=== PATIENT | female | born 1950 | race Caucasian/White ===

== ENCOUNTER → 2023-02-15 | Outpatient (CLI) | payer MEDICARE, SELFPAY ==
[2023-02-15 13:22] LABS: Thyroid Stim Hormone (TSH) 2.61 uIU/mL (0.358-3.74)
== END | disposition home or self-care (01) ==
LOC: LAB 12:03
PROVIDERS: PCP Nurse Practitioner Family; Referring Provider Internal Medicine Cardiovascular Disease; Visit Provider Internal Medicine Cardiovascular Disease
DX: E78.5 Hyperlipidemia, unspecified (principal)
CPT/HCPCS: 36415; 84443

== ENCOUNTER → 2023-03-17 | Outpatient (CLI) | payer MEDICARE, SELFPAY ==
--- NOTE | 2023-03-17 14:28 | ECHOD_ITS ---
Reason For Study: PALPITATIONS Procedure This was a 2D Doppler, Color Flow transthoracic echocardiogram. Exam performed in department. Left Ventricle Normal LV size. Mild concentric left ventricular hypertrophy. The left ventricular ejection fraction is 65 %. Normal diastology for age. Right Ventricle Normal right ventricle. Atria The left and right atria are normal. Mitral Valve Trivial mitral valve insufficiency. Tricuspid Valve Trivial tricuspid valve insufficiency. Normal pulmonary artery pressure. Aortic Valve Trisinus/trileaflet aortic valve. Mild (1+) aortic valve insufficiency. Pulmonic Valve The pulmonic valve is not well visualized. Trivial pulmonic valve insufficiency. Great Vessels Normal sized aortic root. Pericardium/Pleural Trace to small pericardial effusion. MMode/2D Measurements & Calculations LVIDd: 4.2 cm IVSd: 1.2 cm Ao root diam: 3.1 cm LVIDs: 2.8 cm LVPWd: 1.1 cm RVDd: 3.6 cm FS: 32.4 % LAV(MOD-bp): 33.6 ml LVAd ap4: 25.2 cm2 SV(MOD-sp4): 47.0 ml LAV(MOD-bp) Indexed: 18.1 ml/m2 LVLd ap4: 7.2 cm LAV(MOD-sp2): 31.1 ml EDV(MOD-sp4): 72.5 ml LAV(MOD-sp4): 36.7 ml EDV(sp4-el): 75.2 ml LVAs ap4: 13.8 cm2 LVLs ap4: 6.0 cm ESV(MOD-sp4): 25.6 ml ESV(sp4-el): 27.0 ml EF(MOD-sp4): 64.8 % EF(sp4-el): 64.1 % SV(sp4-el): 48.2 ml LA A4 area: 15.3 cm2 LA dimension(2D): 3.7 cm RA A4 area: 14.8 cm2 Time Measurements MV dec time: 0.23 sec Doppler Measurements & Calculations MV E max adal: 84.7 cm/sec Lat Peak E' Adal: 7.7 cm/sec Med Peak E' Adal: 6.3 cm/sec MV A max adal: 91.7 cm/sec E/E' lat: 11.0 E/E' med: 13.5 MV E/A: 0.92 Ao V2 max: 138.2 cm/sec AI max adal: 365.1 cm/sec LV V1 max: 141.3 cm/sec Ao max P.6 mmHg AI max P.3 mmHg LV V1 max P.0 mmHg AI dec slope: 209.1 cm/sec2 AI P1/2t: 511.4 msec PA V2 max: 97.6 cm/sec TR max adal: 208.9 cm/sec TR max P.5 mmHg ECHO/Echo Complete Interpretation Summary Mild concentric left ventricular hypertrophy. The left ventricular ejection fraction is 65 %. Mild (1+) aortic valve insufficiency. Trace to small pericardial effusion. Ordering Physician: Angie Egan Referring Physician: DEREK PHILLIPS Performed By: Peggy Zapien RDCS
== END | disposition home or self-care (01) ==
LOC: CVS 14:28
PROVIDERS: PCP Nurse Practitioner Family; Referring Provider Internal Medicine Cardiovascular Disease; Visit Provider Internal Medicine Cardiovascular Disease
DX: R00.2 Palpitations (principal); I25.10 Atherosclerotic heart disease of native coronary artery without angina pectoris; E78.5 Hyperlipidemia, unspecified; I10 Essential (primary) hypertension; Z95.5 Presence of coronary angioplasty implant and graft
CPT/HCPCS: 93306

== ENCOUNTER → 2025-01-20 | Outpatient (CLI) | payer MEDICARE, SELFPAY | END | disposition home or self-care (01) | LOC: LABSPEC 10:25 | PROVIDERS: PCP Nurse Practitioner Family; Visit Provider Surgery | DX: K43.9 Ventral hernia without obstruction or gangrene (principal) | CPT/HCPCS: 87081 ==

== ENCOUNTER 2025-02-03 06:09 | Day surgery (SDC) | payer MEDICARE, SELFPAY ==
--- NOTE | 2025-01-21 11:19 | PAT.ANESEVAL ---
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 When Was Last Pacemaker Check QUESTION #4 FULL TEXT: You/Your Family Experience fever (hyperthermia) with Anesthesia Last Oral Intake Last Oral intake: Last Oral Intake NPO since Meds taken in AM with sips of water? 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 Female Yes 01/20/25 13:28 HX of Motion Sickness No 01/20/25 13:28 HX of N/V After Surgery No 01/20/25 13:28 Non-Smoker Yes 01/20/25 13:28 Duration of Surgery greater Yes 01/20/25 13:28 than 60 minutes Number of Risk Factors 3 01/20/25 13:28 PONV Score Moderate Risk 01/20/25 13:28 Height & Weight Height & Weight: Anesthesia: Height & Weight Height 5 ft 5 in 09/06/24 09:56 Respiratory Assessment Respiratory Assessment - exhaust machine operator: Respiratory Tract Infection Hx - exhaust machine operator Hx Respiratory Tract Infection No 01/20/25 13:28 STOP Sleep Apnea STOP Sleep Apnea - exhaust machine operator: STOP Sleep Apnea - exhaust machine operator Hx Hypertension Yes: CONTROLLED ON MED 01/20/25 13:28 Hx Sleep Apnea No 01/20/25 13:28 CPAP BIPAP Do you snore loudly (louder No 01/20/25 13:28 than talking or can be heard Do you often feel tired/ No 01/20/25 13:28 fatigued/ sleepy during daytime? Has anyone observed you stop No 01/20/25 13:28 breathing during sleep? STOP Results Negative 01/20/25 13:28 QUESTION #5 FULL TEXT : Do you snore loudly (louder than talking or can be heard through closed doors)? 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 Specify any problems Hx of Preganancy in last 3 No 01/20/25 13:28 Months Nurse Filling Out Transfusion VCHRISTIN 01/20/25 13:28 & Questions: Date: 01/20/25 01/20/25 13:28 Time: 13:29 01/20/25 13:28 Patient unable to answer at this time (ie. 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 Adolfo Melo MD) Wears glasses Post-menopausal Cancer Arthritis High cholesterol Back pain History of IBS Gastric reflux Shortness of breath on exertion History of edema Normal Holter exam History of echocardiogram History of stress test Cardiology follow-up encounter Hx of squamous cell carcinoma History of basal cell cancer BMI 28.0-28.9,adult Elevated fasting glucose Chronic neck pain Glaucoma Former smoker GERD (gastroesophageal reflux disease) Vitamin D deficiency Pulmonary nodule CAD (coronary artery disease) Hyperlipidemia Cervical spondylosis Essential hypertension Depression Fallen bladder IBS (irritable bowel syndrome) Home Medications ?Medication ?Instructions ?Recorded ?Last Taken ?Type amoxicillin 500 mg capsule 2,000 mg PO ONCE PRN dental 02/13/23 Unknown History procedures ascorbic acid (vitamin C) 500 mg 500 mg PO DAILY 02/13/23 Unknown History capsule,extended release aspirin 81 mg tablet,delayed 81 mg PO DAILY 02/13/23 Unknown History release atorvastatin 40 mg tablet 40 mg PO QHS 02/13/23 Unknown History calcium carbonate (Calcium 600) 600 mg PO BID 02/13/23 Unknown History cholecalciferol (vitamin D3) 50 50 mcg PO DAILY 02/13/23 Unknown History mcg (2,000 unit) capsule citalopram 20 mg tablet 20 mg PO DAILY 02/13/23 Unknown History collagen,hydrolysate 500 mg-biotin 1 cap PO DAILY 02/13/23 Unknown History 800 mcg-ascorbic acid 50 mg capsule (Collagen 1500 Plus C) famotidine 20 mg tablet 20 mg PO BID 02/13/23 Unknown History gabapentin 100 mg capsule 200 mg PO BID 02/13/23 Unknown History inulin 2 gram chewable tablet 2 g PO DAILY 02/13/23 Unknown History (Prebiotic Fiber) lactobacillus combination no.4 3 3,000 mmu cells PO .3x/wk 02/13/23 Unknown History billion cell capsule (Probiotic) multivitamin 1 tab PO DAILY 02/13/23 Unknown History omega 1-hgd-avh-fish oil 300 1 cap PO DAILY 02/13/23 Unknown History mg-1,000 mg capsule,delayed release (Fish Oil) sour puentes extract 1,000 mg 3,000 mg PO DAILY 02/13/23 Unknown History capsule (Tart Puentes Extract) timolol maleate 0.5 % eye drops 1 drp ophthalmic (eye) BID 02/13/23 Unknown History zinc acetate 50 mg (zinc) capsule 50 mg PO DAILY 02/13/23 Unknown History losartan 50 mg tablet 25 mg PO DAILY 08/16/24 Unknown History cyanocobalamin (vitamin B-12) 1,000 mcg PO DAILY 01/20/25 Unknown History 1,000 mcg tablet (Vitamin B-12) Allergy/AdvReac Type Severity Reaction Status Date / Time adhesive tape (tape) Allergy Intermediate Rash Verified 01/20/25 13:05 latex Allergy Intermediate Rash Verified 01/20/25 13:05 Family History (Updated 09/06/24 @ 09:56 by Carissa Arango) Brother Cancer lung AAA (abdominal aortic aneurysm) Asthma Mother AAA (abdominal aortic aneurysm) CAD (coronary artery disease) Hypertension Aunt Breast cancer Father Heart disease Surgical History (Updated 01/20/25 @ 13:27 by Roshni Brown) History of cardiac catheterization Hx of breast biopsy Hx of bladder repair surgery Hx of colonoscopy History of lumpectomy of left breast History of coronary artery stent placement Hx of hammer toe correction (~2008) Hx of dilation and curettage (~1972) Hx of cholecystectomy (~2006) Hx of bilateral cataract extraction Hx of total knee replacement (~2007) Hx of total hysterectomy Hx of varicose vein stripping (~2019) History of right shoulder replacement Social History Smoking Status: Former smoker how long ago did patient quit smokin caffeine: Yes (3-4 cups 1/2 caf daily) Audit: Pertinent Findings Pertinent Findings EKG Perinent findings: 08/16/2024. Sinus bradycardia. Negative precordial T waves?probably normal?consider anterior septal ischemia. (See stress) Stress test pertinent findings: 09/23/2024. EF is 74%. SPECT perfusion study was normal. No evidence for inducible ischemia. No evidence of scarred myocardium. Left ventricle is normal in size and function. Echo (EF%) pertinent findings: March 17, 2023. EF of 65%. Normal PA pressures. No aortic stenosis noted. Consult pertinent findings: 08/16/2024. Diameter PAC. 1. Chest pain-single episode 2 months ago. Similar in quality to previous chest pain prior to stenting. Nuclear stress test will be ordered. No current active chest pain. EKG done today is similar to EKG from 2022. Sinus bradycardia with negative precordial T waves, 53 bpm. 2. Coronary artery disease-status post stenting to the LAD in 2019. Continue to use statin therapy. Continue losartan for blood pressure management. Reviewed stress test. 3. Status post coronary artery stent placement-EVAN to the proximal LAD. Continue aspirin daily. 4. Hypertension?controlled in office today. Additional pertinent findings: Holter monitor February 24, 2023. Baseline rhythm is sinus bradycardia with heart rate of 58 bpm. 0 critical, 0 serious, 2 stable events. Manually triggered events during sinus bradycardia x 2. Recommendation Anesthesia Recommendation Anesthesia recommendation: OPTIMIZED for anesthesia
[2025-01-21 15:14] LABS: Hematocrit 38.9 % (37-47); Hemoglobin 13.0 g/dL (12.0-15.0); Mean Corp Hgb Conc 33.4 g/dL (32-36); Mean Corpuscular Volume 96.5 fL (81-99); Mean Platelet Vol. 10.5 fl (6.2-12.0); Platelet Count 157 K/mm3 (150-450); RBC Distribution Width CV 12.7 % (11.6-14.6); RBC Distribution Width SD 45.3 fl (35.1-43.9); Red Blood Count 4.03 M/mm3 (4.2-5.4); White Blood Count 5.3 K/mm3 (4.4-11.0)
[2025-01-21 15:38] LABS: Anion Gap 9 (5-15); BUN 18 mg/dL (4-19); BUN/Creat Ratio 20.1 RATIO (10-20); Calcium,Total 9.2 mg/dL (7.6-11.0); Carbon Dioxide 26.4 mmol/L (21.0-32.0); Chloride 104 mmol/L (98-108); Glucose 97 mg/dL (70-99); Potassium 4.6 mmol/L (3.3-5.1)
[2025-02-03] VITALS (14 sets, daily range): BP systolic 102–152; BP diastolic 55–102; PULSE 56–81; RESP 14–18; TEMP 36.1–37.1; O2SAT 94–100; BMI 28.2
--- OUTSIDE RECORDS SUMMARY | 2025-02-03 06:24 | XMS RPT_ITS | CCD ---
Author Organization [facility] CliniSyne Care Team Providers Care Mason [facility] [employer] Name Role Phone Jatinder PRINTED CIRCUIT DESIGNERCyndiyn Unavailable Cyndi Phillips CNPyn Unavailable [phone] Tung Youssef MD Unavailable Meeta Lozada LPN Unavailable Unavailable Unavailable Unavailable Dr. Angie Egan Attending Provider AMRIUM Phillips-C Derek Primary Care Provider MARIUM Phillips-C Derek Referring Provider Dr. Angie Egan Referring Provider Roof COMMERCIAL FISHER, COMMERCIAL FISHER-C Joss De Leon Attending Provider Kayla LACE INSPECTOR, Verónica Unavailable Unavailable Unavailable Unavailable Unavailable Unavailable Primary Care Provider Unavailabl e Unavailable Primary Care Provider Unavailabl e GRETTA GREEN Referring Unavailable GRETTA GREEN Referring Unavailable GRETTA GREEN Referring Unavailable DEREK PHILLIPS Referring Unavailable CYNDI PHILLIPSYN Referring Unavailable DEREK PHILLIPS Referring Unavailable JATINDERCYNDIYN Referring Unavailable Jatinder COMMERCIAL FISHER-CDerek Primary Care Provider Jatinder COMMERCIAL FISHER-CDerek Referring Provider [phone] Adolfo Melo MD Attending Provider [phone] Derek Phillips Primary Care Unavailable Adolfo Melo Referring Unavailable Adolfo Melo Attending Unavailable Jose A [employer] Unavailable Derek Phillips Primary Care Unavailable [place] Referring Unavailable [place] Attending Unavailable Derek Phillips Referring Unavailable Jatinder Derek Primary Care Unavailable [place] Attending Unavailable JatinderCyndiyn Referring Unavailable Adolfo Melo Attending Unavailable Jatinder, Derek Primary Care Unavailable Derek Phillips Referring Unavailable Derek Phillips Primary Care Unavailable Adolfo Melo Attending Unavailable Derek Phillips Primary Care Unavailable Adolfo Melo Attending Unavailable Allergies Allergy Classification Reported Allergen(s) Allergy Type Date of Onset Reaction(s) Facility (3 sources) Adhesive Tape; Translations: [adhesive tape] Allergy to substance 01-20-2025 [facility] (2 sources) Latex Allergy to substance 01-20-2025 [facility] (1 source) Latex Drug allergy (disorder) 01-20-2025 [facility] Repository Medications Current Medications Medication Drug Class(es) Dates Sig (Normalized) Sig (Original) amoxicillin 500 mg oral capsule (14 sources) Penicillin-class Antibacterial Start: 02-13-2023 take 4 capsules by mouth once as needed Amoxicillin 500 mg capsule Active 2000 mg PO ONCE as needed for dental procedures February 13, 2023 12:00am Start: 02-13-2023 take 2000 mg by mouth once Yunior xicillin Active 2000 MG PO ONCE February 13, 2023 12:00am Start: 01-24-2023 amoxicillin 50 0 mg oral capsule 4 capsule prior to dental appointments and procedures for 0 days Quantity: 4 {Capsule} Refills: 0 Ordered: 24-Jan-2023 Derek Phillips CNP Start : 24-Jan-2023 Active Comments: Mail order. Comment on above: Mail order. ascorbic acid 500 mg extended release oral capsule (14 sources) Vitamin C Start: 023 take 1 capsule by mouth once daily Ascorbic Acid (Vitamin C) 500 mg capsule, extended release Active 500 mg PO DAILY February 13, 2023 12:00am aspirin 81 mg delayed release oral tablet (4 sources) Platelet Aggregation Inhibitor, Nonsteroidal Anti-inflammatory Drug Start: 023 take 1 tablet by mouth once daily Aspirin 81 mg tablet,delayed release (DR/EC) Active 81 mg PO DAILY February 13, 2023 12:00am atorvastatin 40 mg oral tablet (14 sources) HMG-CoA Reductase Inhibitor Start: 023 take 1 tablet by mouth at bedtime Atorvastatin 40 mg tablet Active 40 mg PO AT BEDTIME February 13, 2023 12:00am Comment on above: Mail order. calcium carbonate 1500 mg oral tablet (4 sources) Start: 023 take 1 tablet by mouth twice daily Calcium Carbonate (Calcium 600) 600 mg calcium (1,500 mg) tablet Active 600 mg PO TWICE A DAY February 13, 2023 12:00am cholecalciferol 0.05 mg oral capsule (14 sources) Vitamin D Start: 023 take 1 capsule by mouth once daily Cholecalciferol (Vitamin D3) 50 mcg (2,000 unit) capsule Active 50 ug PO DAILY February 13, 2023 12:00am Vitamin D3 50 mc g (2,000 unit) oral tablet (50 mcg (2,000 uni) Active citalopram 20 mg oral tablet (14 sources) Serotonin Reuptake Inhibitor Start: 01-24-2023 take 1 tablet by mouth once daily Citalopram 20 mg tablet Active 20 mg PO DAILY February 13, 2023 12:00am Comment on above: Mail order. Wfepemro-Scdqhv-Kv corbic Acid (Collagen 1500 Plus C) 500 mg-800 mcg- 50 mg capsule (4 sources) Start: 02-13-2023 take 1 capsule by mouth once daily Cflhoewu-Yobnbp-F scorbic Acid (Collagen 1500 Plus C) 500 mg-800 mcg- 50 mg capsule Active 1 NMA PO DAILY February 13, 2023 12:00am Start: 02-13-2023 take 1 capsule by mo uth once daily Vaejpalr-Pgrisu-Lgqhozcu Acid (Collagen 1500 Plus C) 500 mg-800 mcg- 50 mg capsule Active 1 CAP PO DAILY February 13, 2023 12:00am famotidine 20 mg oral tablet (14 sources) Histamine-2 Receptor Antagonist Start: 01-24-2023 take 1 tablet by mouth twice daily Famotidine 20 mg tablet Active 20 mg PO TWICE A DAY February 13, 2023 12:00am Comment on above: Mail order. Mail order. Medicati on taken as needed. gabapentin 100 mg oral capsule (14 sources) Anti-epileptic Agent Start: 02-13-2023 take 2 capsules by mouth twice daily Gabapentin 100 mg capsule Active 200 mg PO TWICE A DAY February 13, 2023 12:00am Start: 02-13-2023 take 200 mg by mouth twice meenu ly Gabapentin Active 200 MG PO TWICE A DAY February 13, 2023 12:00am Start: 01-24-2023 take 2 capsules by m outh once daily in the morning gabapentin 100 mg oral capsule 2 (two) capsule qam and qpm for 0 days Quantity: 120 {Capsule} Refills: 0 Ordered: 24-Jan-2023 Derek Phillips CNP Start : 24-Jan-2023 Active Comment on above: Mail order. MONICA ra n Inulin (4 sources) Start: 02-13-2023 take 1 tablet by mouth once daily Inulin (Prebiotic Fiber) 2 gram tablet,chewable Active 2 g PO DAILY February 13, 2023 12:00am Start: 02-13-2023 take 1 tablet by edna th once daily Inulin (Prebiotic Fiber) 2 gram tablet,chewable Active 2 GM PO DAILY February 13, 2023 12:00am Lactobacillus Combination No.4 (Probiotic) 3 billion cell capsule (4 sources) Start: 02-13-2023 take 3 capsules by mouth once Lactobacillus Combination No.4 (Probiotic) 3 billion cell capsule Active 3000 NMA PO .3x/wk February 13, 2023 12:00am administer with a meal Start: 02-13-2023 take 3 capsules by mouth once Lactobacillus Combination No.4 (Probiotic) 3 billion cell capsule Active 3000 MMU CELLS PO .3x/wk February 13, 2023 12:00am administer with a meal losartan potassium 50 mg oral tablet (4 sources) Angiotensin 2 Receptor Viral Start: 08-16-2024 Losartan 50 mg tablet Active 25 mg PO DAILY August 16, 2024 9:35am Start: 08-18-2023 End: 08-16-2024 take 1 tablet by mouth once daily Losartan 50 mg tablet Discontinued 50 mg PO DAILY August 18, 2023 12:00am August 16, 2024 9:36am Multivitamin preparation (2 sources) Start: 02-13-2023 take 1 tablet by mouth once daily Multivitamin Active 1 TABLET PO DAILY February 13, 2023 12:00am Multivitamin tablet (2 sources) Start: 02-13-2023 Multivitamin t ablet Active 1 {tbl} PO DAILY February 13, 2023 12:00am [place] 9-Nok-Qqx-Fish Oil (Fish Oil) 300-1,000 mg capsule,delayed release(DR/EC) (4 sources) Start: 02-13-2023 [place] 3-Dha-Ep a-Fish Oil (Fish Oil) 300-1,000 mg capsule,delayed release(DR/EC) Active 1 NMA PO DAILY February 13, 2023 12:00am Start: 02-13-2023 take 300-1000 mg by mouth once daily [place] 3-Sku-Ozs-Fish Oil (Fish Oil) 300-1,000 mg capsule,delayed release(DR/EC) Active 1 CAP PO DAILY February 13, 2023 12:00am sour ty allergenic extract (4 sources) Non-Standardized Food Allergenic Extract, Non-Standardized Plant Allergenic Extract Start: 02-13-2023 take 1 capsule by mouth once daily Sour Ty Extract (Tart Ty Extract) 1,000 mg capsule Active 3000 mg PO DAILY February 13, 2023 12:00am Start: 02-13-2023 take 1 capsule by mo uth once daily Sour Ty Extract (Tart Ty Extract) 1,000 mg capsule Active 3000 MG PO DAILY February 13, 2023 12:00am Timolol Maleate (14 sources) beta-Adrenergic Viral Start: 02-13-2023 Timolo l Maleate 0.5 % drops Active 1 NMA OPHTHALMIC TWICE A DAY February 13, 2023 12:00am Start: 02-13-2023 Timolol Maleat e Active 1 DRP OPHTHALMIC TWICE A DAY February 13, 2023 12:00am Start: 01-24-2023 timoloL 0.5 % ophthalmic (eye) drops 1 (one) Dropperful each eye morning and night for 0 days Quantity: 3 {Each} Refills: 0 Ordered: 24-Jan-2023 Derek Phillips CNP Start : 24-Jan-2023 Active Comments: Mail order. Comment on above: Mail order. vitamin b12 1 mg oral tablet (1 source) Vitamin B12 Start: 01-20-2025 take 1 tablet by mouth once daily Cyanocobalamin (Vitamin B-12) (Vitamin B-12) 1,000 mcg tablet Active 1000 ug PO DAILY January 20, 2025 12:00am zinc acetate 50 mg oral capsule (14 sources) Start: 02-13-2023 take 1 capsule by mouth once daily Zinc Acetate 50 mg (zinc) capsule Active 50 mg PO DAILY February 13, 2023 12:00am Completed/Discontinued Medications Medication Drug Class(es) Dates Sig (Normalized) Sig (Original) Fish OiL 300-1,000 mg oral capsule,delayed release (enteric coated) (10 sources) take 1 capsule by mouth once daily Fish OiL 300-1,000 mg oral capsule,delayed release (enteric coated) daily (300-1,000 mg) Active terbinafine 250 mg oral tablet (2 sources) Allylamine Antifungal Start: 09-06-2024 End: 01-20-2025 take 1 tablet by mouth once daily Terbinafine Hcl 250 mg tablet Discontinued 250 mg PO daily September 06, 2024 12:00am January 20, 2025 10:03am 1x/d, first week month x 3 months Problems Active Problems Problem Classification Problem Date Documented Da te Episodic/Chronic Abdominal hernia (6 sources) Disorder of abdominal wall; Translations: [Ventral hernia without obstruction or gangrene] Onset: 01-24-2025 09-06-2024 Episodic Comment on above: Patient 74-year-old female who makes for surgical consultation related 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 Patient does describe progressive pain complaints with this hernia and recent CT imaging demonstrates the hernia to periodically contain bowel. Furthermore, patient does appear to have some negative effect to her bowel with increased pain around times of constipation. Given the size of the hernia and patient's symptoms as well as her otherwise appearance of appropriate candidacy for surgery, I do recommend proceeding for hernia repair. I described a robot-assisted transabdominal preperitoneal spigelian hernia closure with mesh placement. Patient had a number of questions related to development of scar tissue postoperatively. I then went on to describe expected postoperative recovery. I suggested that patient would need to refrain from any exertional activity for a period of 4 to 5 weeks postoperatively. To this patient states that she has travel plans beginning September through December but wishes to undergo operative repair when she arrives home. Since patient has gone at least 7 years with this hernia and no complications to date I believe this is reasonable. 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 Patient does describe progressive pain complaints with this hernia and recent CT imaging demonstrates the hernia to periodically contain bowel. Furthermore, patient does appear to have some negative effect to her bowel with increased pain around times of constipation. Given the size of the hernia and patient's symptoms as well as her otherwise appearance of appropriate candidacy for surgery, I do recommend proceeding for hernia repair. I described a robot-assisted transabdominal preperitoneal spigelian hernia closure with mesh placement. Patient had a number of questions related to development of scar tissue postoperatively. I then went on to describe expected postoperative recovery. I suggested that patient would need to refrain from any exertional activity for a period of 4 to 5 weeks postoperatively. To this patient states that she has travel plans beginning September through December but wishes to undergo operative repair when she arrives home. Since patient has gone at least 7 years with this hernia and no complications to date I believe this is reasonable.Update 01/20/2025: Patient arrives for updated H&P. She denies any interval health changes. She does continue to have symptoms from her right spigelian hernia. This is stable in size and otherwise on exam. She has a number of questions today related to her procedure which were answered individually. She confirms satisfaction with these answers. I have provided an overview of our intended procedure-transabdominal preperitoneal repair of her right spigelian hernia. She confirms familiarity with robotics procedures as she has previously undergone robotic assisted cholecystectomy and hysterectomy. Lastly a MRSA swab was obtained of her nares to evaluate for any need for preoperative eradication. Abdominal pain (4 sources) Right lower quadrant pain; Translations: [Right lower quadrant pain] 03-29-2023 Episodic Comment on above: s/p cholecystectomy Coronary atherosclerosis and other heart disease (20 sources) Coronary arteriosclerosis; Translations: [Coronary artery disease] Onset: 08-16-2024 01-24-2023 Chronic Comment on above: not established with cardio yet since just moved here not established with cardio yet since just moved here September 2022 Diabetes mellitus without complication (20 sources) Hyperglycemia; Translations: [Elevated fasting glucose] 01-24-2023 Episodic Disorders of lipid metabolism (20 sources) Hyperlipidemia; Translations: [Hyperlipidemia] 01-24-2023 Chronic Esophageal disorders (20 sources) Gastric reflux; Translations: [Gastric reflux] 01-24-2023 Chronic Essential hypertension (20 sources) Benign essential hypertension; Translations: [Benign essential hypertension] 01-24-2023 Chronic Comment on above: CONTROLLED ON MED Glaucoma (20 sources) Glaucoma; Translations: [Glaucoma] 01-24-2023 Chronic Immunizations and screening for infectious disease (8 sources) Viral screening status; Translations: [Need for hepatitis C screening test] 03-29-2023 Episodic Mood disorders (20 sources) Depressive disorder; Translations: [Depression] 01-24-2023 Chronic Nutritional deficiencies (20 sources) Vitamin D deficiency; Translations: [Vitamin D deficiency] 01-24-2023 Chronic Other gastrointestinal disorders (20 sources) Irritable bowel syndrome with diarrhea; Translations: [Irritable bowel syndrome with diarrhea] 01-24-2023 Chronic Comment on above: controlled with diet no medications. took fiber in past. ice cream makes worse. Other lower respiratory disease (20 sources) Multiple nodules of lung; Translations: [Multiple pulmonary nodules] 01-24-2023 Episodic Comment on above: no breathing issues. No inhaler use. had repeat CT 02/03/23 : multiple lung nodules 6-8mm (last was up to 6mm in [place]). recommendations include f/u CT chest WO IVCON in 3-6 months, then if stable repeat in another 12 months.no breathing issues. No inhaler use. Other lower respiratory disease (16 sources) Nodule of lung; Translations: [Pulmonary nodule] Resolved: 02-13-2023 01-24-2023 Episodic Other nutritional; endocrine; and metabolic disorders (20 sources) Overweight in adulthood with body mass index of 25 or more but less than 30; Translations: [BMI 28.0-28.9,adult (Renamed from Body mass index (BMI) of 28.0 to 28.9 in adult)] 01-24-2023 Episodic Screening and history of mental health and substance abuse codes (20 sources) Ex-smoker; Translations: [Former smoker] 01-24-2023 Episodic Comment on above: 10 yrs, quit when 23 yrs old, 37-fz-wj-history Spondylosis; intervertebral disc disorders; other back problems (20 sources) Cervical spondylosis; Translations: [Cervical spondylosis] 01-24-2023 Chronic Spondylosis; intervertebral disc disorders; other back problems (20 sources) Chronic neck pain; Translations: [Chronic neck pain] 01-24-2023 Episodic Comment on above: on gabapentin. tried to recently wean and her nerve pain spiked so back on it. Unclassified (12 sources) Unclassified (1 source) Radiology NM Onset: 09-23-2024 Past or Other Problems Problem Classification Problem Date Documented Da te Episodic/Chronic Cardiac dysrhythmias (7 sources) Palpitations; Translations: [Palpitations] Onset: 08-16-2024 02-15-2023 Episodic Coronary atherosclerosis and other heart disease (5 sources) Presence of coronary angioplasty implant and graft; Translations: [Percutaneous transluminal coronary angioplasty status] Onset: 08-16-2024 02-15-2023 Episodic Nonspecific chest pain (6 sources) Chest pain; Translations: [Chest pain, unspecified] Onset: 08-16-2024 09-23-2024 Episodic Unclassified (10 sources) 1 live 01-25-2023 NEGATED: Highlighted row has been ruled out!Residual codes; unclassified (1 source) Disease Episodic Results Test Name Value Interpretation Reference Range Facility Basic Metabolic Profile (BMP )on 01-21-2025 BUN/CRE 20.1 RATIO High 03-17 [facility] Comment on above: Performed By: #### L 500.2500, L100.0500 #### [facility] [address] [place], [address] Calcium [Mass/Vol] 9.2 mg/dL Normal 7.6-11.0 [facility] Comment on above: Performed By: #### L 500.2500, L100.0500 #### [facility] [address] [place], [address] Chloride [Moles/Vol] 104 mmol/L Normal 98-108 [facility] Comment on above: Performed By: #### L 500.2500, L100.0500 #### [facility] [address] [place], [address] CO2 [Moles/Vol] 26.4 mmol/L Normal 21.0-32.0 [facility] Comment on above: Performed By: #### L 500.2500, L100.0500 #### [facility] [address] [place], [address] Creatinine [Mass/Vol] 0.90 mg/dL Normal 0.70-1.20 [facility] Comment on above: Performed By: #### L 500.2500, L100.0500 #### [facility] [address] [place], [address] GAP 9 Normal 5-15 [facility] Comment on above: Performed By: #### L 500.2500, L100.0500 #### [facility] [address] [place], [address] GFR/1.73 sq M.predicted among non-blacks MDRD (S/P/Bld) [Vol rate/Area] 67 mL/min/{1.73_m2} Normal >60 [facility] Comment on above: Result Comment: mL/m in/1.73m2 CKD-EPI Creatinine Equation (2020) Performed By: #### L 500.2500, L100.0500 #### [facility] [address] [place], [address] Glucose [Mass/Vol] 97 mg/dL Normal 70-99 [facility] Comment on above: Performed By: #### L 500.2500, L100.0500 #### [facility] [address] [place], [address] Potassium [Moles/Vol] 4.6 mmol/L Normal 3.3-5.1 [facility] Comment on above: Performed By: #### L 500.2500, L100.0500 #### [facility] [address] [place], [address] Sodium [Moles/Vol] 140 mmol/L Normal 133-145 [facility] Comment on above: Performed By: #### L 500.2500, L100.0500 #### [facility] [address] [place], [address] Urea nitrogen [Mass/Vol] 18 mg/dL Normal 4-19 [facility] Comment on above: Performed By: #### L 500.2500, L100.0500 #### [facility] [address] [place], [address] CBC-Complete Blood Cnt No Di ffon 08-26-2025 Erythrocyte distribution width (RBC) [Ratio] 12.7 % Normal 11.6-14.6 [facility] Comment on above: Performed By: #### L 500.2500, L100.0500 #### [facility] [address] [place], [address] Hematocrit (Bld) [Volume fraction] 38.9 % Normal 37-47 [facility] Comment on above: Performed By: #### L 500.2500, L100.0500 #### [facility] [address] [place], [address] Hemoglobin (Bld) [Mass/Vol] 13.0 g/dL Normal 12.0-15.0 [facility] Comment on above: Performed By: #### L 500.2500, L100.0500 #### [facility] [address] [place], [address] MCH (RBC) [Entitic mass] 32.3 pg High 27.0-32.0 [facility] Comment on above: Performed By: #### L 500.2500, L100.0500 #### [facility] [address] [place], [address] MCHC (RBC) [Mass/Vol] 33.4 g/dL Normal 32-36 [facility] Comment on above: Performed By: #### L 500.2500, L100.0500 #### [facility] [address] [place], [address] MCV (RBC) [Entitic vol] 96.5 fL Normal 81-99 [facility] Comment on above: Performed By: #### L 500.2500, L100.0500 #### [facility] [address] [place], [address] Platelet mean volume (Bld) [Entitic vol] 10.5 fL Normal 6.2-12.0 [facility] Comment on above: Performed By: #### L 500.2500, L100.0500 #### [facility] [address] [place], [address] Platelets (Bld) [#/Vol] 157 10*3/uL Normal 150-450 [facility] Comment on above: Performed By: #### L 500.2500, L100.0500 #### [facility] [address] [place], [address] RBC (Bld) [#/Vol] 4.03 10*6/uL Low 4.2-5.4 [facility] Comment on above: Performed By: #### L 500.2500, L100.0500 #### [facility] [address] [place], [address] RDW SD 45.3 fl High 35.1-43.9 [facility] Comment on above: Performed By: #### L 500.2500, L100.0500 #### [facility] [address] [place], [address] WBC (Bld) [#/Vol] 5.3 10*3/uL Normal 4.4-11.0 [facility] Comment on above: Performed By: #### L 500.2500, L100.0500 #### [facility] [address] [place], [address] MR/PAT.MARGYon 01-21-2025 MR/PAT[facility] Medical Records Department [address] [place] [address] PAT - Anesthesia 01/21/25 1119 MR#: [id number] Acct: [id number] Name: PAOLA ANDERSON MARTÍN Rep #: [id number] : 1950 74 From: Roberto Carlos Spence MD PCP: Derek Phillips COMMERCIAL FISHERWilmaC Status:PRE [facility] Y Race: C [place] [facility] Pre-Assessment Diagnosis/Proposed Procedure Planned Operative Procedure(s): (R) Lap Robotic Spigelian Hernia w/mesh Anesthesia History Anesthesia History - 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 When Was Last Pacemaker Check QUESTION #4 FULL TEXT: You/Your Family Experience fever (hyperthermia) with Anesthesia Last Oral Intake Last Oral intake: Last Oral Intake NPO since Meds taken in AM with sips of water? 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 - campus recruiter: PONV - campus recruiter Female Yes 01/20/25 13:28 HX of Motion Sickness No 01/20/25 13:28 HX of N/V After Surgery No 01/20/25 13:28 Non-Smoker Yes 01/20/25 13:28 Duration of Surgery greater Yes 01/20/25 13:28 than 60 minutes Number of Risk Factors 3 01/20/25 13:28 PONV Score Moderate Risk 01/20/25 13:28 Height Weight Height Weight: Anesthesia: Height Weight Height 5 ft 5 in 09/06/24 09:56 Respiratory Assessment Respiratory Assessment - campus recruiter: Respiratory Tract Infection Hx - campus recruiter Hx Respiratory Tract Infection No 01/20/25 13:28 STOP Sleep Apnea STOP Sleep Apnea - campus recruiter: STOP Sleep Apnea - campus recruiter Hx Hypertension Yes: CONTROLLED ON MED 01/20/25 13:28 Hx Sleep Apnea No 01/20/25 13:28 CPAP BIPAP Do you snore loudly (louder No 01/20/25 13:28 than talking or can be heard Do you often feel tired/ No 01/20/25 13:28 fatigued/ sleepy during daytime? Has anyone observed you stop No 01/20/25 13:28 breathing during sleep? STOP Results Negative 01/20/25 13:28 QUESTION #5 FULL TEXT : Do you snore loudly (louder than talking or can be heard through closed doors)? 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 Specify any problems Hx of Preganancy in last 3 No 01/20/25 13:28 Months Nurse Filling Out Transfusion VCHRISTIN 01/20/25 13:28 Questions: Date: 01/20/25 01/20/25 13:28 Time: 13:29 01/20/25 13:28 Patient unable to answer at this time (ie. confused, unrespo /Reproduction History /Reproductive History - campus recruiter: /Reproductive Hx- campus recruiter Hx Now No 01/20/25 13:28 Gestational Age (in weeks): EDC: Hx Hx Para Hx Section SAB No 01/20/25 13:28 [facility] Medical History (Updated 01/20/25 @ 13:[address] Adolfo Melo MD) Wears glasses Post-menopausal Cancer Arthritis High cholesterol Back pain History of IBS Gastric reflux Shortness of breath on exertion History of edema Normal Holter exam History of echocardiogram History of stress test Cardiology follow-up encounter Hx of squamous cell carcinoma History of basal cell cancer BMI 28.0-28.9,adult Elevated fasting glucose Chronic neck pain Glaucoma Former smoker GERD (gastroesophageal reflux disease) Vitamin D deficiency Pulmonary nodule CAD (coronary artery disease) Hyperlipidemia Cervical spondylosis Essential hypertension Depression Fallen bladder IBS (irritable bowel syndrome) Home Medications ???Medication ???Instructions ???Recorded ???Last Taken ???Type amoxicillin 500 mg capsule 2,000 mg PO ONCE PRN dental (more content not included)... Normal [facility] MRSA/SAID NASAL SCREENon MRSA+SAID SCRN Negative Normal [facility] Comment on above: Performed By: #### M 100.651 #### [facility] [address] [place], [address] MRSA screenOrdered By: Benson Melo on 01-20-2025 MRSA DNA ALLYSSA+probe Ql (Unsp spec) [facility] Surgery Visit Reporton 01-20 Surgery Visit Report [facility] [address] [place] [address] OFFICE VISIT Date of Service: 01/20/25 MR#: [id number] Acct: [id number] Name: PAOLA ANDERSON MARTÍN Rep #: [id number] : 1950 Provider: Dr. Adolfo flaherty MD Age/Sex: 74/F Location: [facility] Status: Signed Intake Vital Signs 09/06/24 09:56 01/20/25 10:01 Height 5 ft 5 in 5 ft 5 in Weight: 170 lb 172 lb BMI 28.3 28.6 BP 129/74 H 124/67 H Blood Pressure Location Lt brachial Rt brachial Position Sitting Sitting Respiration 17 17 Pulse 55 L 53 L Pulse Source Monitor Monitor Pulse Oximetry (%) 100 99 Oxygen Delivery Method room air room air Intake Visit Reasons: UPDATE H P AND MRSA SWAB Chief Complaint: update H P and MRSA Swab Is patient in pain?: No Allergies adhesive tape (tape) Allergy (Intermediate, Verified 01/20/25 13:05) Rash latex Allergy (Intermediate, Verified 01/20/25 13:05) Rash Medications ???Medication ???Instructions ???Recorded ???Confirmed ???Type amoxicillin 500 mg capsule 2,000 mg PO ONCE PRN dental 01/20/25 History procedures ascorbic acid (vitamin C) 500 mg 500 mg PO DAILY 02/13/23 01/20/25 History capsule,extended release aspirin 81 mg tablet,delayed 81 mg PO DAILY 02/13/23 01/20/25 H istory release atorvastatin 40 mg tablet 40 mg PO QHS 02/13/23 01/20/25 His tory calcium carbonate (Calcium 600) 600 mg PO BID 02/13/23 01/20/25 Hi story cholecalciferol (vitamin D3) 50 50 mcg PO DAILY 02/13/23 01/20/25 History mcg (2,000 unit) capsule citalopram 20 mg tablet 20 mg PO DAILY 02/13/23 01/20/25 H istory collagen,hydrolysate 500 mg-biotin 1 cap PO DAILY 02/13/23 01/20/25 History 800 mcg-ascorbic acid 50 mg capsule (Collagen 1500 Plus C) famotidine 20 mg tablet 20 mg PO BID 02/13/23 01/20/25 His tory gabapentin 100 mg capsule 200 mg PO BID 02/13/23 01/20/25 Hi story inulin 2 gram chewable tablet 2 g PO DAILY 02/13/23 01/20/25 His tory (Prebiotic Fiber) lactobacillus combination no.4 3 3,000 mmu cells PO .3x/wk 02/13/23 01/20/25 History billion cell capsule (Probiotic) multivitamin 1 tab PO DAILY 02/13/23 01/20/25 H istory omega 2-pon-adk-fish oil 300 1 cap PO DAILY 02/13/23 01/20/25 H istory mg-1,000 mg capsule,delayed release (Fish Oil) sour ty extract 1,000 mg 3,000 mg PO DAILY 02/13/23 5 History capsule (Tart Ty Extract) timolol maleate 0.5 % eye drops 1 drp ophthalmic (eye) BID 3 01/20/25 History zinc acetate 50 mg (zinc) capsule 50 mg PO DAILY 02/13/23 01/20/25 History losartan 50 mg tablet 25 mg PO DAILY 08/16/24 01/20/25 H istory cyanocobalamin (vitamin B-12) 1,000 mcg PO DAILY 01/20/25 History 1,000 mcg tablet (Vitamin B-12) Have you fallen in the past year?: No PFSH Medical History BMI 28.0-28.9,adult Elevated fasting glucose Chronic neck pain Glaucoma Former smoker GERD (gastroesophageal reflux disease) Vitamin D deficiency Pulmonary nodule CAD (coronary artery disease) Hyperlipidemia Cervical spondylosis Essential hypertension Depression Fallen bladder IBS (irritable bowel syndrome) Surgical History History of coronary artery stent placement Hx of hammer toe correction ( 2008) Hx of dilation and curettage ( 1972) Hx of cholecystectomy ( 2007) Hx of bilateral cataract extraction Hx of total knee replacement ( 2007) Hx of total hysterectomy Hx of varicose vein stripping ( 2018) History of right shoulder replacement Family History (Updated 09/06/24 @ 09:56 by Carissa Arango) Brother Cancer lung AAA (abdominal aortic aneurysm) Asthma Mother AAA (abdominal aortic aneurysm) CAD (coronary artery disease) Hypertension Aunt Breast cancer Father Heart disease Social History Smoking Status: Former smoker how long ago did patient quit smokin caffeine: Yes (3-4 cups 1/2 caf daily) HPI HPI HPI: Patient last seen 09/06/2024. She presents today for updated H P as may prepare for operative repair of a right spigelian hernia. She shares that she has done reasonably well since her consultation visit, however she admits that she has had a couple of spells. By this she states that she has experienced her right lower quadrant hurting pretty good. She shares that simply by laying down and massaging the area both the noted pain and associated bulge remit. She generally notes that her bowel activity has been status quo (she notes a history of IBS) but yesterday she did have a particularly loose stool. She previously was taking fiber but ran out of this medication. (more content not included)... [facility] ([facility] PAOLA CASTELLANOS ([id number]) 1950 F Date Time Provider Department 09/23/24 1:50 PM NURSE CARD [facility] CARDWS During your visit today, we recorded the following information about you: Jaqui Turner RN 09/23/2024 2:37 PM Signed RADIOLOGY SERVICE PROGRESS NOTE SERVICE DATE: 09/23/2024 SERVICE TIME: 1350 PATIENT IDENTITY VERIFICATION COMPLETED USING TWO (2) METHODS: Patient confirmed name and Date of verbally. ALLERGIES AND MEDICATIONS REVIEWED BY: Jaqui Turner RN PROCEDURE TYPE: NM STRESS: 0.4 mg of Lexiscan was administered IV at 1357 over 10 Seconds by Jaqui Turner RN Reversal agent used:None LOT [id number] EXP 02/21 IV SITE: IV palced by nuclear tecnologist POST EXAM PIV STATUS: Discontinued by Nurse Companion PATIENT DISCHARGED TO: Nuclear Medicine Department for post stress imaging A Diagnostic radioactive procedure has taken place, with no further precautions necessary other than routine body substance precautions. More information regarding radiation safety can be found using this link: [email or web address] [email or web address]/files/Rad%20P rotection%20-- %20Diagnostic%20Nuclea r%20Medicine%20Procedu res.pdf SIGNATURE: Jaqui Turner RN PATIENT NAME:Paola Castellanos DATE: 09/23/24 TIME: 2:34 PM Referring Provider: GRETTA GREEN [[id number]] Allergies As of Date: 09/23/2024 (Not on File) Date Reviewed: 09/23/2024 Reviewed by: Kareem Sepulveda, RT(R) - Partially Assessed Primary Visit Diagnosis:Atherosclero sis of [place] coronary artery of [place] heart without angina pectoris [I25.10] Other Visit Diagnoses:Status post coronary artery stent placement [Z95.5] Chest pain, unspecified type [R07.9] Problem List As Of Date: 09/23/2024 (None) Encounter Status:Closed by JAQUI TURNER on 09/23/24 Normal [facility] NM CARDIAC PERF STRESS/PHARM on 09-23-2024 NM CARDIAC PERF STRESS/PHARM * * *Final Report* * * DATE OF EXAM: Sep 23 2024 3:02PM WON 0006 - NM CARDIAC PERF STRESS/PHARM / PROCEDURE REASON: chest pain; atherosclerotic heart disease; presence of coonary angioplasty * * * * Physician Interpretation * * * * Stress Airplane Pilot Photogrammetry Report: [facility] Date of service: 09/23/2024 6:45:30 AM Supervising physician: Di Valera MD PATIENT: Name: PAOLA CASTELLANOS Age: 74 years Gender: F The supervising physician was in the department and immediately available. * * * Final * * * ------ PATIENT: Name: PAOLA CASTELLANOS Age: 74 years Gender: F CONCLUSIONS: 1. SPECT Perfusion Study: Normal. 2. There is no scintigraphic evidence for inducible ischemia. 3. No evidence of scarred myocardium. 4. Left ventricle is normal in size. The left ventricle systolic function is normal. 5. Right ventricle is normal in size. The right ventricle systolic function is normal. 6. This is a low risk scan. Gated Stress FBP Gated Rest FBP LVEF % 74 71 Prior Study Comparison No prior nuclear cardiology exam available for comparison. Nuclear Med Report:1-Day Gated SPECT Myocardial Perfusion with Regadenoson Stress: Myocardial perfusion imaging was performed at rest 30 minutes following the IV injection of the radiotracer. The patient received 0.4 mg of regadenoson, via rapid IV push, immediately followed by radiotracer IV. Gated post stress tomographic imaging was performed 30 to 60 minutes later. See administered radiotracer and doses below. [facility] Date of service: 09/23/2024 6:45:30 AM Ordering Physician: WEST ANDRADE. Requesting Physician: WEST ANDRADE Indication: CP - ECG uniterpretable OR unable to exercise Interpreting physician: Salvador Sullivan MD Height: 165.10 cm BSA: 1.89 m? Weight: 78.02 kg BMI: 28.6 kg/m? Imaging Protocol Limitation Reason G.I. uptake. Exam Type: Rest Stress Radiopharm: Tc-99m Tetrofosmin Tc-99m Tetrofosmin Dosage(mCi): 13.6 33.6 Stress Agent: Regadenoson 0.4mg Supply provided from [facility] Resting Blood Press: 150/78 mmHg Image Quality The overall study imaging quality was deemed to be good. The following technical issues were noted: G.I. uptake. FINDINGS: Left Ventricle Wall Motion: Stress IR:3D - All segments are normal. Rest IR:3D - Gated Stress FBP - Gated Rest FBP - Reversibility - Stress IR:3D Stress IR:3D Gated Stress FBP Gated Rest FBP LVEF: 74 % 71 % ED Volume: 80 ml 82 ml ES Volume: 21 ml 24 ml TID: 1.02 Perfusion Findings Stress IR:3D - Summed Score=0 All segments demonstrate normal perfusion. Rest IR:3D - Summed Score=0 All segments demonstrate normal perfusion. Stress IR:3D Rest IR:3D Summed Score=0 Summed Score=0 LEFT VENTRICLE The left ventricle is normal in size. Left ventricular systolic function is normal. Right Ventricle The right ventricle is normal in size. Right ventricle systolic function is normal. Stress Test Findings: There is no scintigraphic evidence for inducible ischemia. There is no evidence of scarring. The left ventricular cavity size is unchanged with stress. * * * Final * * * ------ Stress ECG Report: [facility] Date of service: 09/23/2024 6:45:30 AM Ordering physician: WEST ANDRADE testing specialist: Jauqi Turner RN Interpreting physician: Di Valera MD Patient name: PAOLA CASTELLANOS Age: 74 years Gender: F Height: 165.10 cm BSA: 1.89 m? Weight: 78.02 kg BMI: 28.6 kg/m? Indication: Chest pressure / Chest tightness, Atherosclerotic heart disease NOS, History of percutaneous coronary angioplasty and Palpitations Stress ECG Conclusion: Conclusion: Normal Prior exam comparison: No prior CC exam Stress ECG Summary: The patient's resting heart rate was 55 bpm and blood pressure was 150/78 mmHg. The test was terminated due to end of protocol. No symptoms provoked during stress. The maximum heart rate was 67 bpm, which is 47% of the predicted heart rate for age. Peak blood pressure was 116/68 mmHg. The double product achieved was 7772. Resting ECG: Sinus Bradycardia Symptoms at rest: No symptoms Pharamcologic Protocol: Regadenoson Stress Exercise Table: +-----+--+---+---+ Stage HR SYS COLBY +-----+--+---+---+ 1 59 +-----+--+---+---+ 2 74 112 62 +-----+--+---+---+ 3 69 +-----+--+---+---+ 4 67 116 68 +-----+--+---+---+ +-----+--+---+---+ HR SYS COLBY +-----+--+---+---+ Final 67 116 68 +-----+--+---+---+ Recovery Table: +------+- (more content not included)... Normal [facility] Surgery Visit Reporton 09-06 Surgery Visit Report [facility] [address] [place] [address] [address] [place] [id number] OFFICE VISIT Date of Service: 09/06/24 MR#: [id number] Acct: [id number] Name: PAOLA ANDERSON MARTÍN Rep #: [id number] : 1950 Provider: Dr. Adolfo flaherty MD Age/Sex: 74/F Location: [facility] Status: Signed Intake Vital Signs 08/18/23 10:01 08/16/24 07:42 09/06/24 09:56 Height 5 ft 5 in 5 ft 5 in 5 ft 5 in Weight: 172 lb 170 lb BMI 28.6 28.3 BP 116/75 129/74 H Blood Pressure Location Lt brachial Lt brachial Position Sitting Sitting Respiration 18 17 Pulse 53 L 55 L Pulse Source Monitor Monitor Pulse Oximetry (%) 100 100 Oxygen Delivery Method room air Intake Visit Reasons: Hernia Chief Complaint: hernia Is patient in pain?: No Allergies adhesive tape (tape) Allergy (Intermediate, Verified 09/06/24 10:00) Rash latex Allergy (Intermediate, Verified 09/06/24 10:00) Rash Medications ???Medication ???Instructions ???Recorded ???Confirmed ???Type amoxicillin 500 mg capsule 2,000 mg PO ONCE PRN dental 09/06/24 History procedures ascorbic acid (vitamin C) 500 mg 500 mg PO DAILY 02/13/23 09/06/24 History capsule,extended release aspirin 81 mg tablet,delayed 81 mg PO DAILY 02/13/23 09/06/24 H istory release atorvastatin 40 mg tablet 40 mg PO QHS 02/13/23 09/06/24 His tory calcium carbonate (Calcium 600) 600 mg PO BID 02/13/23 09/06/24 Hi story cholecalciferol (vitamin D3) 50 50 mcg PO DAILY 02/13/23 09/06/24 History mcg (2,000 unit) capsule citalopram 20 mg tablet 20 mg PO DAILY 02/13/23 09/06/24 H istory collagen,hydrolysate 500 mg-biotin 1 cap PO DAILY 02/13/23 09/06/24 History 800 mcg-ascorbic acid 50 mg capsule (Collagen 1500 Plus C) famotidine 20 mg tablet 20 mg PO BID 02/13/23 09/06/24 His tory gabapentin 100 mg capsule 200 mg PO BID 02/13/23 09/06/24 Hi story inulin 2 gram chewable tablet 2 g PO DAILY 02/13/23 09/06/24 His tory (Prebiotic Fiber) lactobacillus combination no.4 3 3,000 mmu cells PO .3x/wk 02/13/23 09/06/24 History billion cell capsule (Probiotic) multivitamin 1 tab PO DAILY 02/13/23 09/06/24 H istory omega 6-hxu-rmc-fish oil 300 1 cap PO DAILY 02/13/23 09/06/24 H istory mg-1,000 mg capsule,delayed release (Fish Oil) sour ty extract 1,000 mg 3,000 mg PO DAILY 02/13/23 5 History capsule (Tart Ty Extract) timolol maleate 0.5 % eye drops 1 drp ophthalmic (eye) BID 3 09/06/24 History zinc acetate 50 mg (zinc) capsule 50 mg PO DAILY 02/13/23 09/06/24 History losartan 50 mg tablet 25 mg PO DAILY 08/16/24 09/06/24 H istory terbinafine HCl 250 mg tablet 250 mg PO QDAY 09/06/24 09/06/24 H istory Have you fallen in the past year?: No PFSH Medical History BMI 28.0-28.9,adult Elevated fasting glucose Chronic neck pain Glaucoma Former smoker GERD (gastroesophageal reflux disease) Vitamin D deficiency Pulmonary nodule CAD (coronary artery disease) Hyperlipidemia Cervical spondylosis Essential hypertension Depression Fallen bladder IBS (irritable bowel syndrome) Surgical History History of coronary artery stent placement Hx of hammer toe correction ( 2008) Hx of dilation and curettage ( 1972) Hx of cholecystectomy ( 2006) Hx of bilateral cataract extraction Hx of total knee replacement ( 2007) Hx of total hysterectomy Hx of varicose vein stripping ( 2018) History of right shoulder replacement Family History (Updated 09/06/24 @ 09:56 by Carissa Arango) Brother Cancer lung AAA (abdominal aortic aneurysm) Asthma Mother AAA (abdominal aortic aneurysm) CAD (coronary artery disease) Hypertension Aunt Breast cancer Father Heart disease Social History Smoking Status: Former smoker how long ago did patient quit smokin caffeine: Yes (3-4 cups 1/2 caf daily) HPI HPI HPI: Patient is a 74-year old female who presents for evaluation of a right spigelian hernia. This finding was first noticed by patient approximately 7 years ago in 2018. She states at that time she was living in [place] and asked to a surgeon to perform a colonoscopy as she was concerned this was the cause of her abdominal discomfort. He initially declined since patient had just had a prior scope 3 years earlier. Instead he obtained an x-ray that was not conclusive. She ultimately did go on to repeat her colonoscopy and this was unremarkable. Thereafter she states she raised this concern with multiple healthcare providers but found these concerns dismissed after sharing her evaluation by surgery. Fortunately patient did (more content not included)... Normal [facility] 12 Lead EKG performed by [facility] on 08-16-2024 12 Lead EKG performed by [facility] [address] [place] [address] 12 Lead EKG performed by [facility] 08/16/24933 MR#: [id number] Acct: [id number] Name: PAOLA CASTELLANOS Rep #: [id number] : 1950 74 From: [place] H[place] Attending Dr: DALE Colbert Status: DEP AM B Ordering Dr: [place] Date: 08/16/24 Location: [facility] Sex: F C Admitted: BMS/12 Lead EKG performed by [facility] ECG Report Interpretation ----Sinus Bradycardia - Negative precordial T-waves -Probably normal -consider anteroseptal ischemia. PROBABLY NORMAL FOR AGEElectronically signed on 08/17/2024 at 11:08 by Tung [employer] Version [id number] 08/17/24 1112 Date [place] HUNTER CC: COMMERCIAL FISHER-C Derek Phillips Date Dictated: 08/16/24933 Date Transcribed: 08/16/24933 Mortgage Loan Interviewer: ELVIRA Signed Normal [facility] Cardiology Visit Reporton Cardiology Visit Report [facility] [address] [place] [address] OFFICE VISIT Date of Service: 08/16/24 MR#: [id number] Acct: [id number] Name: PAOLA CASTELLANOS Rep #: [id number] : 1950 Provider: DALE Colbert Age/Sex: 74/F Location: [facility] Status: Signed HPI HPI History of Present Illness Details: Paola Castellanos is a 74-year-old female who presents to office today for follow-up for monitoring of her cardiovascular disease. Patient has a history of coronary artery disease in which she underwent stenting to her proximal LAD in [place] roughly 5 years ago. Patient has a history of hypertension and hyperlipidemia. Since last seen, approximately 1 year ago, patient reports doing well. Patient reports 1 episode, about 2 months ago, of chest pain across the anterior of the chest shoulder to shoulder. Patient reports this is the same symptoms she had that led to her prior stenting. Patient reports this occurred when lying in bed and resolved within minutes. Patient has not had reoccurrence of this since. Patient reports occasional palpitations that only last a couple seconds, this is chronic. Patient reports left lower extremity edema that she has had for years, patient has history of vein surgery in that leg. Patient denies shortness of breath. For exercise, patient does stationary at home walking program. Patient is unable to walk long distance secondary to arthritis and back pain. Patient denies shoulder or arm pain. Patient denies back pain that is associated with chest pain. Further ROS below. Intake Vital Signs 08/18/23 10:01 08/16/24 07:42 Height 5 ft 5 in 5 ft 5 in Weight: 172 lb BMI 28.6 BP 116/75 Blood Pressure Location Lt brachial Position Sitting Respiration 18 Pulse 53 L Pulse Source Monitor Pulse Oximetry (%) 100 Intake Visit Reasons: 1 Y FU Director Of Video Analytics Required: No Is patient in pain?: No Allergies No Known Allergies Allergy (Unverified 08/16/24 09:33) Medications ???Medication ???Instructions ???Recorded ???Confirmed ???Type amoxicillin 500 mg capsule 2,000 mg PO ONCE PRN dental 08/16/24 History procedures ascorbic acid (vitamin C) 500 mg 500 mg PO DAILY 02/13/23 08/16/24 History capsule,extended release aspirin 81 mg tablet,delayed 81 mg PO DAILY 02/13/23 08/16/24 H istory release atorvastatin 40 mg tablet 40 mg PO QHS 02/13/23 08/16/24 His tory calcium carbonate (Calcium 600) 600 mg PO BID 02/13/23 08/16/24 Hi story cholecalciferol (vitamin D3) 50 50 mcg PO DAILY 02/13/23 08/16/24 History mcg (2,000 unit) capsule citalopram 20 mg tablet 20 mg PO DAILY 02/13/23 08/16/24 H istory collagen,hydrolysate 500 mg-biotin 1 cap PO DAILY 02/13/23 08/16/24 History 800 mcg-ascorbic acid 50 mg capsule (Collagen 1500 Plus C) famotidine 20 mg tablet 20 mg PO BID 02/13/23 08/16/24 His tory gabapentin 100 mg capsule 200 mg PO BID 02/13/23 08/16/24 Hi story inulin 2 gram chewable tablet 2 g PO DAILY 02/13/23 08/16/24 His tory (Prebiotic Fiber) lactobacillus combination no.4 3 3,000 mmu cells PO .3x/wk 02/13/23 08/16/24 History billion cell capsule (Probiotic) multivitamin 1 tab PO DAILY 02/13/23 08/16/24 H istory omega 4-soy-nzn-fish oil 300 1 cap PO DAILY 02/13/23 08/16/24 H istory mg-1,000 mg capsule,delayed release (Fish Oil) sour ty extract 1,000 mg 3,000 mg PO DAILY 02/13/23 5 History capsule (Tart Ty Extract) timolol maleate 0.5 % eye drops 1 drp ophthalmic (eye) BID 3 08/16/24 History zinc acetate 50 mg (zinc) capsule 50 mg PO DAILY 02/13/23 08/16/24 History losartan 50 mg tablet 25 mg PO DAILY 08/16/24 08/16/24 H istory Ejection fraction %: 65 Have you fallen in the past year?: No PFSH Medical History BMI 28.0-28.9,adult Elevated fasting glucose Chronic neck pain Glaucoma Former smoker GERD (gastroesophageal reflux disease) Vitamin D deficiency Pulmonary nodule CAD (coronary artery disease) Hyperlipidemia Cervical spondylosis Essential hypertension Depression Fallen bladder IBS (irritable bowel syndrome) Surgical History History of coronary artery stent placement Hx of hammer toe correction ( 2008) Hx of dilation and curettage ( 1972) Hx of cholecystectomy ( 2006) Hx of bilateral cataract extraction Hx of total knee replacement ( 2007) Hx of total hysterectomy Hx of varicose vein stripping ( 2018) History of right shoulder replacement Family History Brother Cancer lung AAA (abdominal aortic aneurysm) Mother AAA (abdominal aortic aneurysm) CAD (coronary artery di (more content not included)... Normal [facility] WAYNE SCREENING W TOMOon 08-16 WAYNE SCREENING W DEMETRICE * * *Final Report* * * DATE OF EXAM: Aug 16 2024 11:29AM WRW 0582 - WAYNE SCREENING W DEMETRICE / PROCEDURE REASON: Z12.31 * * * * Physician Interpretation * * * * RESULT: [facility] [address] [place] [address] #[id number] - WAYNE SCREENING W DEMETRICE HISTORY: 74 year-old patient seen for screening. Patient is asymptomatic in both breasts. Patient states no personal history of breast cancer. The patient has a family history of breast cancer. COMPARISON STUDIES: The present examination has been compared to a prior imaging study dated 08/14/2023 (mammogram). MAMMOGRAM TECHNIQUE: The study was acquired using full field digital technology and interpreted from soft copy. Digital Breast Tomosynthesis (DBT) images were obtained and used to assist in the interpretation of this examination. MAMMOGRAM FINDINGS: There are scattered areas of fibroglandular density. No suspicious masses, calcifications or other abnormalities are seen in either breast. Vascular calcifications are present. Benign calcifications are noted bilaterally. There is a biopsy marker clip in the right breast. IMPRESSION: There is no mammographic evidence of malignancy in either breast. Routine screening mammogram is recommended. Annual mammogram will be due in 1 year. BI-RADS Category 1: Negative RISK: Based on the Tyrer-Cuzick (TC) risk assessment model, this patient has a 2.7% lifetime risk of developing breast cancer, meaning they are at average risk for developing breast cancer. However, this is only an estimate based on available history provided on the patient's questionnaire. We encourage all patients to talk with their providers about these results, further recommendations for managing breast health, and appropriate supplemental screening options if the patient has dense breast tissue. Interpreting Radiologist: Shantell Ospina M.D. Electronically signed on: 08/18/2024 Mortgage Loan Interviewer: IONA Transcribe Date/Time: Aug 16 2024 10:59A Dictated by: SHANTELL OSPINA MD This examination was interpreted and the report reviewed and electronically signed by: SHANTELL OSPINA MD on Aug 18 2024 3:25PM EST [id number] Normal [facility] CT ABD/PEL W IVCONon 025 CT ABD/PEL W IVCON * * *Final Report* * * DATE OF EXAM: Jul 19 2024 11:34AM [facility] 0530 - CT ABD/PEL W IVCON / PROCEDURE REASON: R10.813 RLQ tenderness * * * * Physician Interpretation * * * * EXAMINATION: CT ABDOMEN AND PELVIS WITH IV CONTRAST CLINICAL HISTORY: Right lower quadrant tenderness TECHNIQUE: CT of the abdomen and pelvis was performed using standard technique, scanning from just above the dome of the diaphragm to the symphysis pubis. MQ: CTAP_3 Contrast: IV: 100 ml of Omnipaque 350 Oral: 10 ml of Omni 240 10-25ml diluted with water CT Radiation dose: Integrated Dose-length product (DLP) for this visit = 532 mGy*cm. CT Dose Reduction Employed: Automated exposure control(AEC) and iterative recon COMPARISON: CT chest 12/18/2023. RESULT: Liver: Subcentimeter low-density right hepatic lobe focus is likely a cyst. No suspicious hepatic lesion Biliary: No bile duct dilation. Cholecystectomy Spleen: No mass. No splenomegaly. Pancreas: No mass or duct dilation. Adrenals: No mass. Kidneys: No mass, calculus or hydronephrosis. GI tract: No dilation or wall thickening. Incidental cecal lipoma Lymph nodes: No abdominal or pelvic lymphadenopathy. Mesentery/Peritoneum: No ascites or mass. Retroperitoneum: No mass. Vasculature: - Abdominal aorta and iliac arteries: No aneurysm. - Celiac and SMA: Patent without stenosis. - Portal venous system (SMV, splenic vein, portal vein and branches): Patent. - Hepatic veins: Incompletely opacified, likely due to early phase of enhancement. Pelvis: No mass, ascites or fluid collection. Bones/Soft Tissues: Degenerative changes. 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 Lower thorax: Unremarkable. Localizer images: No additional findings. IMPRESSION: Right lower quadrant spigelian hernia containing small bowel without obstruction No acute process in the abdomen or pelvis Mortgage Loan Interviewer: FAVIO Transcribe Date/Time: Jul 23 2024 10:38A Dictated by : GÉNESIS CHARLES MD This examination was interpreted and the report reviewed and electronically signed by: GÉNESIS CHARLES MD on Jul 23 2024 10:47AM EST [id number] Normal [facility] CT CHEST WO IVCONon 12-18-[address] CHEST WO IVCON * * *Final Report* * * DATE OF EXAM: Dec 18 2023 2:59PM [facility] 0541 - CT CHEST WO IVCON / PROCEDURE REASON: chest wo * * * * Physician Interpretation * * * * EXAMINATION: CHEST CT WITHOUT CONTRAST CLINICAL HISTORY: Lung nodules Technique: Spiral CT acquisition of the chest from the thoracic inlet to the upper abdomen without contrast. MQ: CTCWO_6 CT Radiation dose: Integrated Dose-length product (DLP) for this visit = 198 mGy*cm CT Dose Reduction Employed: Automated exposure control(AEC) and iterative recon Comparison: 02/03/2023 RESULT: Limitations: None. Lines, tubes, and devices: None. Lung parenchyma and airways: No consolidation is seen. A pleural-based nodule at the left costophrenic angle is stable and measures approximately 6 mm series 7 image 148. A groundglass opacity in the anterior left upper lobe is pleural-based series 7 image 75 and measures approximately 1 cm. Subtle nodular opacities in the right lower lobe are noted measuring up to 5 mm image 103 and image 101. Slight apical scarring. Central airways appear patent. Pleural space: No pleural effusion. No pleural thickening. Lower neck, lymph nodes, and mediastinum: The imaged thyroid gland is normal. No lymphadenopathy in the supraclavicular, axillary, mediastinal, or hilar regions. Heart, pericardium, and thoracic vessels: The thoracic aorta and main pulmonary artery are normal in caliber. The cardiac chambers are normal in size. Atherosclerotic calcifications of the thoracic aorta are seen. Extensive coronary artery atherosclerotic calcifications are noted, although the study is not optimized for coronary assessment. No pericardial effusion or thickening. Bones and soft tissues: Moderate to severe degenerative changes of the spine are noted. Upper abdomen: Hypodense lesion in the right lobe of the liver is stable measuring 8 mm series 5 image 192. Localizer images: No additional finding IMPRESSION: Multiple small nodules which appears stable. These measure up to 6 mm. Recommend one-year follow-up CT chest. No lymphadenopathy seen ACTIONABLE RESULT: FOLLOW-UP Acuity: Actionable Findings: Thoracic-Lung nodules Routing code: RI_1 Recommendation: CT Chest WO IVCON Time Frame: In one year. COMMUNICATION: Results will be communicated with the ordering provider via [employer] staff message or phone message by Imaging Support Services within 2 business days of report finalization. --END OF FINDING-- Mortgage Loan Interviewer: FAVIO Transcribe Date/Time: Dec 20 2023 10:10P Dictated by : DIANA LARIOS MD This examination was interpreted and the report reviewed and electronically signed by: DIANA LARIOS MD on Dec 20 2023 10:13PM EST [id number] ACTIONABLE Invalid Interpretation Code [facility] CNCOon 11-18-2023 CNCO HNO ID: [id number] Author: COORDINATOR, MAMMOGRAPHY, ? Service: ? Author Type: Physician Type: Letter Filed: 11/18/2023 08:35 Note Text: November 20, 2023 PID: [id number] Paola Castellanos [address] [facility] [address] [place] [address] Dear Ms. Castellanos, Your prior imaging studies have arrived and been compared to your current study. We are pleased to inform you that the results of your recent breast imaging exam on 08/14/2023 are normal. Early detection of cancer is very important. We also understand recommendations regarding breast cancer screening are controversial. Please discuss with your primary care provider which strategy is best for you and whether a mammogram is right for you. Your imaging studies and report will be kept on file at [facility] as part of your permanent medical record and are available for your continuing care. Thank you for allowing us to help in meeting your health care needs. Sincerely, Dr. Hairston Interpreting Radiologist [facility] (Normal Old Films compared) Normal [facility] DBT Breast - bilateral scree ningon 08-14-2023 [facility] XR LUMBAR GENERAL 3V AP/LAT/ L5-S1on 07-05-2023 [facility] No Panel InformationOrdered By: Angie Egan on 02-15-2023 Thyroid Stimulating Hormone (TSH) 2.61 uIU/mL 0.358-3.74 [facility] CT CHEST WO IVCONon 09-13-20 23 Radiology Result ACTIONABLE Abnormal [facility] CALCIFEDIOL ([id number])Ordered B y: Manager State on 01-24-2023 25-hydroxyvitamin D [Mass/Vol] 64.9 ng/mL Normal 30.0-100.0 [facility]; [facility] Work Phone: Comment on above: Vitamin D deficiency has been defined by the [facility] and an Endocrine Society practice guideline as alevel of serum 25-OH vitamin D less than 20 ng/mL (1,2).The Endocrine Society went on to further define vitamin Dinsufficiency as a level between 21 and 29 ng/mL (2).1. IOM (Trinity of Medicine). 2010. Dietary reference intakes for calcium and D. Castellanos [place]: The National Academies Press.2. Talat MF, Elena COLLINS, Nila GARCÍA, et al. Evaluation, treatment, and prevention of vitamin D deficiency: an Endocrine Society clinical practice guideline. JCEM. 2010; 96(7):1911-30. PATIENT WAS FASTINGP ERFORMED BY: TNC [facility]ictor[facility] Ajwhef[address] [place] [id number] CBC, PLATELETS & AUT DIFF ([id number])Ordered By: Manager State on 01-24-2023 Basophils (Bld) [#/Vol] 0.1 10*3/uL Normal 0.0-0.2 [facility]; [facility] Work Phone: Comment on above: PATIENT WAS FASTINGP ERFORMED BY: TNC LabDefense Mobilerp Mpcrse[address] FlukleDublin [place] [id number] Basophils/100 WBC (Bld) 1 % Normal [facility]; [facility] Work Phone: Comment on above: PATIENT WAS FASTINGP ERFORMED BY: TNC LabcoLoanLogics Iwmjnk3002 [address]andro RoadDublin [place] [id number] Eosinophils (Bld) [#/Vol] 0.3 10*3/uL Normal 0.0-0.4 [facility]; [facility] Work Phone: Comment on above: PATIENT WAS FASTINGP ERFORMED BY: TNC LabcoLoanLogics Mulnfs5499 [address] FlukleDublin [place] [id number] Eosinophils/100 WBC (Bld) 6 % Normal [facility]; [facility] Work Phone: Comment on above: PATIENT WAS FASTINGP ERFORMED BY: YOSELIN Holley Goldman6370 [facility] [id number] Erythrocyte distribution width (RBC) [Ratio] 12.1 % Normal 11.7-15.4 [facility]; [facility] Work Phone: Comment on above: PATIENT WAS FASTINGP ERFORMED BY: Labco Qkjvkl9136 [facility] [id number] Hematocrit (Bld) [Volume fraction] 42.4 % Normal 34.0-46.6 [facility]; [facility] Work Phone: Comment on above: PATIENT WAS FASTINGP ERFORMED BY: YOSELIN [facility] Chllti5131 [facility] [id number] Hemoglobin (Bld) [Mass/Vol] 14.2 g/dL Normal 11.1-15.9 [facility]; [facility] Work Phone: Comment on above: PATIENT WAS FASTINGP ERFORMED BY: [facility] Oxdvak2446 [address] [facility] [id number] Immature granulocytes (Bld) [#/Vol] 0.0 10*3/uL Normal 0.0-0.1 [facility]; [facility] Work Phone: Comment on above: PATIENT WAS FASTINGP ERFORMED BY: [facility] Lwbmwz8999 [facility] [id number] Immature granulocytes/100 WBC (Bld) 0 % Normal [facility]; [facility] Work Phone: Comment on above: PATIENT WAS FASTINGP ERFORMED BY: Labco Pjjwfo1593 [address] [facility] [id number] Lymphocytes (Bld) [#/Vol] 1.8 10*3/uL Normal 0.7-3.1 [facility]; [facility] Work Phone: Comment on above: PATIENT WAS FASTINGP ERFORMED BY: YOSELIN Labco Efemsf2517 [facility] [id number] Lymphocytes/100 WBC (Bld) 33 % Normal [facility]; [facility] Work Phone: Comment on above: PATIENT WAS FASTINGP ERFORMED BY: YOSELIN Holley Goldman6370 [facility]Saint [facility] [id number] MCH (RBC) [Entitic mass] 31.6 pg Normal 26.6-33.0 [facility]; [facility] Work Phone: Comment on above: PATIENT WAS FASTINGP ERFORMED BY: YOSELIN Zaina Jilkju3142 [facility] [id number] MCHC (RBC) [Mass/Vol] 33.5 g/dL Normal 31.5-35.7 [facility] prehensive Internal Medicine; [facility] Work Phone: Comment on above: PATIENT WAS FASTINGP ERFORMED BY: YOSELIN Zainasherley Qvlhtk3692 [facility] [id number] MCV (RBC) [Entitic vol] 94 fL Normal 79-97 [facility]; [facility] Work Phone: Comment on above: PATIENT WAS FASTINGP ERFORMED BY: YOSELIN Holley Goldman6370 [facility] [id number] Monocytes (Bld) [#/Vol] 0.5 10*3/uL Normal 0.1-0.9 [facility]; [facility] Work Phone: Comment on above: PATIENT WAS FASTINGP ERFORMED BY: YOSELIN Zaina Fopqnu2399 [facility] [id number] Monocytes/100 WBC (Bld) 9 % Normal [facility]; [facility] Work Phone: Comment on above: PATIENT WAS FASTINGP ERFORMED BY: YOSELIN Zaina Adruuy7638 [facility] [id number] Neutrophils (Bld) [#/Vol] 2.7 10*3/uL Normal 1.4-7.0 [facility]; [facility] Work Phone: Comment on above: PATIENT WAS FASTINGP ERFORMED BY: YOSELIN [facility] Oamplu[address] [facility] [place] [id number] Neutrophils/100 WBC (Bld) 51 % Normal [facility]; [facility] Work Phone: Comment on above: PATIENT WAS FASTINGP ERFORMED BY: YOSELIN Mahajan Rxideg[address] [facility] [place] [id number] Platelets (Bld) [#/Vol] 156 10*3/uL Normal 150-450 [facility]; [facility] Work Phone: Comment on above: PATIENT WAS FASTINGP ERFORMED BY: YOSELIN [facility] Cbybbu5218 [address] [facility]in [place] [id number] RBC (Bld) [#/Vol] 4.49 10*6/uL Normal 3.77-5.28 Compr [facility] Internal Medicine; [facility] Work Phone: Comment on above: PATIENT WAS FASTINGP ERFORMED BY: [facility] Jxubmd9475 [facility] [id number] WBC (Bld) [#/Vol] 5.4 10*3/uL Normal 3.4-10.8 [facility] Internal [facility]; [facility] Work Phone: Comment on above: PATIENT WAS FASTINGP ERFORMED BY: YOSELIN Gutierrezlin6370 [facility] [id number] HGB A1C ([id number])Ordered By: S ystem Social Sciences Professor on 01-24-2023 HbA1c (Bld) [Mass fraction] 5.5 % Normal 4.8-5.6 [facility]; [facility] Work Phone: Comment on above: . Prediabetes: 5.7 - 6.4 Diabetes: >6.4 Glycemic control for adults with diabetes: <7.0 PATIENT WAS FASTINGP ERFORMED BY: YOSELIN [facility] Yauvvj7194 [facility] [place] [id number] LIPID PANEL (29791)Ordered B y: Manager State on 01-24-2023 Cholesterol [Mass/Vol] 118 mg/dL Normal 100-199 [facility]; [facility] Work Phone: Comment on above: PATIENT WAS FASTINGP ERFORMED BY: YOSELIN [facility] Gxzgqm3727 [address] RoadDublin [place] [id number] Cholesterol in HDL [Mass/Vol] 58 mg/dL Normal [facility]; [facility] Work Phone: Comment on above: PATIENT WAS FASTINGP ERFORMED BY: YOSELIN [facility] Tjecmb8593 [address] RoadDublin [place] [id number] Triglyceride [Mass/Vol] 63 mg/dL Normal 0-149 [facility]; [facility] Work Phone: Comment on above: PATIENT WAS FASTINGP ERFORMED BY: YOSELIN [facility] Hzybrs2072 [address] RoadDublin [place] [id number] LIPID PANEL (48585) 14 mg/dL Normal 5-40 [facility]; [facility] Work Phone: Comment on above: PATIENT WAS FASTINGP ERFORMED BY: YOSELIN [facility] Kukghi3295 [address] RoadDublin [place] [id number] LIPID PANEL (14613) 46 mg/dL Normal 0-99 [facility]; [facility] Work Phone: Comment on above: PATIENT WAS FASTINGP ERFORMED BY: YOSELIN [facility] Fqnnus1070 [address] RoadDublin [place] [id number] LIPID PANEL (06235) 0.8 {ratio} Normal 0.0-3.2 [facility]; [facility] Work Phone: Comment on above: LDL/HDL Ratio Men Wo men 1/2 Avg.Risk 1.0 1.5 Avg.Risk 3.6 3.2 2X Avg.Risk 6.2 5.0 3X Avg.Risk 8.0 6.1 PATIENT WAS FASTINGP ERFORMED BY: CB [facility] Kroybr3992 [address] RoadDublin [place] [id number] METABOLIC PANEL, COMPREHENSI VE ([id number])Ordered By: Manager State on 01-24-2023 Albumin [Mass/Vol] 4.6 g/dL Normal 3.8-4.8 [facility] Internal [facility]; [facility] Work Phone: Comment on above: PATIENT WAS FASTINGP ERFORMED BY: YOSELIN Labcosherley Ckhxhb2155 [address] RoadDublin [place] [id number] Albumin/Globulin [Mass ratio] 2.1 {ratio} Normal 1.2-2.2 [facility]; [facility] Work Phone: Comment on above: PATIENT WAS FASTINGP ERFORMED BY: YOSELIN Gutierrezlin6370 [address] RoadDublin [place] [id number] ALP [Catalytic activity/Vol] 88 U/L Normal 44-121 [facility]; [facility] Work Phone: Comment on above: PATIENT WAS FASTINGP ERFORMED BY: YOSELIN [facility] Dsdkfv0590 [address] RoadDublin [place] [id number] ALT [Catalytic activity/Vol] 43 U/L Abnormal 0-32 [facility]; [facility] Work Phone: Comment on above: PATIENT WAS FASTINGP ERFORMED BY: Zaina Fvbohh0656 [address] RoadDublin [place] [id number] AST [Catalytic activity/Vol] 34 U/L Normal 0-40 [facility]; [facility] Work Phone: Comment on above: PATIENT WAS FASTINGP ERFORMED BY: YOSELIN Goldman6370 [address] RoadDublin [place] [id number] Bilirubin [Mass/Vol] 0.8 mg/dL Normal 0.0-1.2 [facility] rehensive Internal Medicine; [facility] Work Phone: Comment on above: PATIENT WAS FASTINGP ERFORMED BY: YOSELIN Labalden Iwlvgi4697 [address] RoadDublin [place] [id number] Calcium [Mass/Vol] 9.8 mg/dL Normal 8.7-10.3 [facility]; [facility] Work Phone: Comment on above: PATIENT WAS FASTINGP ERFORMED BY: YOSELIN Labcosherley Fwizro7990 [address] RoadDublin [place] [id number] Chloride [Moles/Vol] 104 mmol/L Normal 96-106 Comp rehensive Internal Medicine; [facility] Work Phone: Comment on above: PATIENT WAS FASTINGP ERFORMED BY: YOSELIN [facility] Dinkhi1145 [address] RoadDublin [place] [id number] CO2 [Moles/Vol] 25 mmol/L Normal 20-[address] [facility] Internal Medicine; [facility] Work Phone: Comment on above: PATIENT WAS FASTINGP ERFORMED BY: YOSELIN [facility] Hdwuhj8818 [address] RoadDublin [place] [id number] Creatinine [Mass/Vol] 0.76 mg/dL Normal 0.57-1.00 [facility] prehensive Internal Medicine; [facility] Work Phone: Comment on above: PATIENT WAS FASTINGP ERFORMED BY: YOSELIN [facility] Vqfype8082 [address] RoadDublin [place] [id number] GFR/1.73 sq M.predicted among non-blacks MDRD (S/P/Bld) [Vol rate/Area] 82 mL/min/{1.73_m2} Normal [facility]pre[facility]sswed[facility]; [facility] Work Phone: Comment on above: PATIENT WAS FASTINGP ERFORMED BY: YOSELIN [facility] Hymeqk8642 [address] RoadDublin [place] [id number] Globulin (S) [Mass/Vol] 2.2 g/dL Normal 1.5-4.5 [facility] Internal Medicine; [facility] Work Phone: Comment on above: PATIENT WAS FASTINGP ERFORMED BY: YOSELIN [facility] Squohv0208 [address] RoadDublin [place] [id number] Glucose [Mass/Vol] 104 mg/dL Abnormal 70-99 [facility] Internal [facility]; [facility] Work Phone: Comment on above: PATIENT WAS FASTINGP ERFORMED BY: YOSELIN [facility] Yhaylc6207 [address] RoadDublin [place] [id number] Potassium [Moles/Vol] 4.9 mmol/L Normal 3.5-5.2 [facility]; [facility] Work Phone: Comment on above: PATIENT WAS FASTINGP ERFORMED BY: YOSELIN [facility] Yratkd2000 [address] RoadDublin [place] [id number] Protein [Mass/Vol] 6.8 g/dL Normal 6.0-8.5 [facility]; [facility] Work Phone: Comment on above: PATIENT WAS FASTINGP ERFORMED BY: YOSELIN Labcosherley Whtptz6974 [address] RoadDublin [place] [id number] Sodium [Moles/Vol] 142 mmol/L Normal 134-144 [facility]; [facility] Work Phone: Comment on above: PATIENT WAS FASTINGP ERFORMED BY: YOSELIN [facility] Chgnvf2455 [address] RoadDublin [place] [id number] Urea nitrogen [Mass/Vol] 16 mg/dL Normal 8-27 [facility]; [facility] Work Phone: Comment on above: PATIENT WAS FASTINGP ERFORMED BY: YOSELIN [facility] Khcdfw8033 [address] RoadDublin [place] [id number] Urea nitrogen/Creatinine [Mass ratio] 21 mg/mg Normal 12-28 [facility]; [facility] Work Phone: Comment on above: PATIENT WAS FASTINGP ERFORMED BY: YOSELIN [facility] Rkhgto1024 [address] RoadDublin [place] [id number] URINALYSIS ([id number])Ordered By : Manager State on 01-24-2023 Appearance (U) Clear Normal Comprehens jill Internal Medicine; [facility] Work Phone: Comment on above: PATIENT WAS FASTINGP ERFORMED BY: YOSELIN [facility] Mvdusk4194 [address] RoadDublin [place] [id number] Bilirubin Ql (U) Negative Normal Comprehe nsive Internal Medicine; [facility] Work Phone: Comment on above: PATIENT WAS FASTINGP ERFORMED BY: YOSELIN [facility] Hoqtpi6780 [address] RoadDublin [place] [id number] Color (U) Yellow Normal [facility]; [facility] Work Phone: Comment on above: PATIENT WAS FASTINGP ERFORMED BY: YOSELIN [facility] Dmgxre4246 [address] RoadDublin [place] [id number] Glucose Ql (U) Negative Normal Comprehens jill Internal [facility]; [facility] Work Phone: Comment on above: PATIENT WAS FASTINGP ERFORMED BY: YOSELIN Goldman6370 [address] RoadDublin [place] [id number] Hemoglobin Ql (U) Negative Normal Compreh ensive Internal Medicine; [facility] Work Phone: Comment on above: PATIENT WAS FASTINGP ERFORMED BY: YOSELIN Goldman6370 [address] RoadDublin [place] [id number] Ketones Ql (U) Negative Normal Comprehens jill Internal Medicine; [facility] Work Phone: Comment on above: PATIENT WAS FASTINGP ERFORMED BY: YOSELIN Goldman6370 Ale[address]andro [address]Dublin [place] [id number] Leukocyte esterase Test strip Ql (U) Negative Normal [facility] Work Phone: Comment on above: PATIENT WAS FASTINGP ERFORMED BY: YOSELIN Goldman6[address]Dublin [place] [id number] Microscopic observation LM Nom (Urine sed) MICNIP Normal [facility]; [facility] Work Phone: Comment on above: Microscopic not fuad cated and not performed. PATIENT WAS FASTINGP ERFORMED BY: YOSELIN Gutierrezlin6370 [address] RoadDublin [place] [id number] Nitrite Ql (U) Negative Normal Comprehens [facility]; [facility] Work Phone: Comment on above: PATIENT WAS FASTINGP ERFORMED BY: YOSELIN Gutierrezlin[address]Dublin [place] [id number] pH (U) 8.0 [pH] Abnormal 5.0-7.5 [facility]; [facility] Work Phone: Comment on above: PATIENT WAS FASTINGP ERFORMED BY: YOSELIN Labottoniel GutierrezFkauwx4399 Ale[address]Dublin [place] [id number] Protein Ql (U) Negative Normal Comprehens [facility]; [facility] Work Phone: Comment on above: PATIENT WAS FASTINGP ERFORMED BY: YOSELIN Gutierrezlin[address]Dublin [place] [id number] Specific gravity (U) [Rel density] 1.020 1 Normal 1.005-1.030 [facility] Work Phone: Comment on above: PATIENT WAS FASTINGP ERFORMED BY: Last Size [id number] [place] [facility] [id number] Urobilinogen (U) [Mass/Vol] 0.2 mg/dL Normal 0.2-1.0 [facility] Work Phone: Comment on above: PATIENT WAS FASTINGP ERFORMED BY: Last Size [id number] [facility] [id number] Vital Signs Date Time Vital Sign Value Performing Clinician Facility 01-20-2025 10:01-0400 Body height 165.1 cm Derek Phillips [employer] Work Phone: [facility] 01-20-2025 10:01-0400 Body mass index (BMI) [Ratio] 28.6 kg/m2 Derek Phillips [employer] Work Phone: [facility] 01-20-2025 10:01-0400 Body weight 78.01 kg Derek Phillips [employer] Work Phone: [facility] 01-20-2025 10:01-0400 Diastolic blood pressure 67 mm[Hg] Derek Phillips [employer] Work Phone: [facility] 01-20-2025 10:01-0400 Heart rate 53 /min Derek Phillips [employer] Work Phone: [facility] 01-20-2025 10:01-0400 Respiratory rate 17 /min Derek Phillips [employer] Work Phone: [facility] 01-20-2025 10:01-0400 SaO2% (BldA) [Mass fraction] 99 % Derek Phillips [employer] Work Phone: [facility] 01-20-2025 10:01-0400 Systolic blood pressure 124 mm[Hg] Derek Phillips [employer] Work Phone: [facility] 09-23-2024 13:50-0400 Body height 165.1 cm Injection Wstr Work Phone: [facility] 09-23-2024 13:50-0400 Body mass index (BMI) [Ratio] 28.62 kg/m2 Injection Wstr Work Phone: [facility] 09-23-2024 13:50-0400 Body weight 78.02 kg Injection Wstr Work Phone: [facility] 03-29-2023 13:23-0400 Body height 165.1 cm [facility] Work Phone: 03-29-2023 13:23-0400 Body mass index (BMI) [Ratio] 28.83 kg/m2 Verónica Garza [facility]; [facility] Work Phone: 03-29-2023 13:23-0400 Body surface area Derived from formula 1.86 m2 Verónica Garza [facility]; [facility] Work Phone: 03-29-2023 13:23-0400 Body temperature 97.7 [degF] [facility]; [facility] Work Phone: Comment on above: Method: Thermal Scan 03-29-2023 [id number] Body weight 78.59 kg Verónica Villalbajoanvaleri [facility]; [facility] Work Phone: 03-29-2023 13:23-0400 Diastolic blood pressure 68 mm[Hg] Verónica Garza [facility]; [facility] Work Phone: Comment on above: Patient Position: Sitting; Cuff Location : Left Arm; Cuff Size: Standard 03-29-2023 13:23-0400 Heart rate 60 /min Verónica Deejayjoanvaleri [facility]; [facility] Work Phone: Comment on above: Pattern: Regular 03-29-2023 13:23-0400 Respiratory rate 16 /min Verónica Manosmin [facility]; [facility] Work Phone: Comment on above: Pattern: Unlabored 03-29-2023 13:23-0400 SaO2% (BldA) [Mass fraction] 99 % Verónica Garza [facility]; [facility] Work Phone: Comment on above: Room air 03-29-2023 13:23-0400 Systolic blood pressure 104 mm[Hg] Verónica Garza [facility]; [facility] Work Phone: Comment on above: Patient Position: Sitting; Cuff Location : Left Arm; Cuff Size: Standard 02-15-2023 11:07-0400 Body height 165.1 cm [employer] Derek Touream Work Phone: [facility] 02-15-2023 11:07-0400 Body mass index (BMI) [Ratio] 29.4 kg/m2 [employer] Derek Jatinder Work Phone: [facility] 02-15-2023 11:07-0400 Body weight 80.28 kg [employer] Derek Jatinder Work Phone: [facility] 02-15-2023 11:07-0400 Diastolic blood pressure 78 mm[Hg] [employer] Derek Jatinder Work Phone: [facility] 02-15-2023 11:07-0400 Heart rate 53 /min [employer] Derek Jatinder Work Phone: [facility] 02-15-2023 11:07-0400 Respiratory rate 16 /min [employer] Derek Jatinder Work Phone: [facility] 02-15-2023 11:07-0400 Systolic blood pressure 118 mm[Hg] [employer] Derek Jatinder Work Phone: [facility] 01-24-2023 10:29-0400 Body height 165.1 cm Meeta Lozada LPN [facility]; [facility] Work Phone: 01-24-2023 10:29-0400 Body mass index (BMI) [Ratio] 28.16 kg/m2 Meeta Slarb [employer]IDENT[employer]IEF [facility]; [facility] Work Phone: 01-24-2023 10:290400 Body surface area Derived from formula 1.84 m2 Meeta Slarb [employer] CHIEF [facility]; [facility] Work Phone: 01-24-2023 10:29-0400 Body temperature 97 [degF] Meeta Slarb [employer] CHIEF [facility]; [facility] Work Phone: Comment on above: Method: Temporal 01-24-2023 10:29-0400 Body weight 76.77 kg Meeta Slarb [employer] CHIEF [facility]; [facility] Work Phone: 01-24-2023 10:29-0400 Diastolic blood pressure 62 mm[Hg] Meeta Slarb [employer] CHIEF [facility]; [facility] Work Phone: Comment on above: Patient Position: Sitting; Cuff Location : Left Arm; Cuff Size: Standard 01-24-2023 10:29-0400 Heart rate 50 /min Meeta Slarb [employer] CHIEF [facility]; [facility] Work Phone: Comment on above: Pattern: Regular 01-24-2023 10:29-0400 Respiratory rate 16 /min Meeta Slarb [employer] CHIEF [facility]; [facility] Work Phone: Comment on above: Pattern: Unlabored 01-24-2023 10:29-0400 SaO2% (BldA) [Mass fraction] 97 % Meeta Slarb [employer] CHIEF [facility]; [facility] Work Phone: Comment on above: Room air 01-24-2023 10:29-0400 Systolic blood pressure 106 mm[Hg] Meeta Slarb [employer] CHIEF [facility]; [facility] Work Phone: Comment on above: Patient Position: Sitting; Cuff Location : Left Arm; Cuff Size: Standard Encounters Encounter Date Encounter Type Care Provider Facility Start: 02-03-2025 catherine Phillips Facility :[facility] Start: 01-31-2025 Encounter for other preprocedural examination Adolfo Melo [facility] Start: 01-20-2025 End: 01-20-[address] Adolfo Melo MD -[facility] Work Phone: Start: 01-20-2025 End: 01-20-2025 ambulatory Derek Phillips [employer] Work Phone: -[facility] Start: 01-20-2025 End: 01-20-2025 ambulatory Derek Phillips Facility:[facility] Start: 09-23-2024 End: 09-23-2024 Nursing evaluation of patient and report Nurse Card Wstr Work Phone: Cardiology Comment on above: Atherosclerosis of n ative coronary artery of [place] heart without angina pectoris (Primary Dx); Status post coronary artery stent placement; Chest pain, unspecified type Start: 09-23-2024 End: 09-23-2024 ambulatory GRETTA GREEN Facility:[facility] Start: 09-23-2024 [facility] Start: 09-23-2024 End: 09-23-2024 Subsequent hospital visit by physician [facility] Work Phone: Nuclear Medicine Start: 09-16-2024 End: 09-16-2024 E-mail encounter from caregiver Nurse Card Wstr Work Phone: Cardiology Start: 09-16-2024 End: 09-16-2024 ambulatory Nurse Card Wstr Work Phone: Cardiology Comment on above: Stress Test Instruct ions for 09/23/24 Start: 09-06-2024 End: 09-06-2024 ambulatory Derek Phillips Facility:[facility] Start: 08-16-2024 End: 08-16-2024 ambulatory DEREK PHILLIPS Facility:[facility] Start: 08-16-2024 End: 08-16-2024 Subsequent hospital visit by physician Screen [facility] Start: 08-16-2024 End: 08-16-2024 ambulatory Derek Phillips Facility:[facility] Start: 07-19-2024 End: 07-19-2024 ambulatory DEREK PHILLIPS Facility:[facility] Start: 07-19-2024 End: 07-19-2024 Subsequent hospital visit by physician [facility] (I-Stat) Work Phone: Cat Scan Start: 12-18-2023 End: 12-18-2023 ambulatory DEREK PHILLIPS Facility:[facility] Start: 12-18-2023 End: 12-18-2023 Subsequent hospital visit by physician [facility] (I-Stat) Work Phone: Cat Scan Start: 11-18-2023 Documentation procedure Mammog hany Coordinator [facility] Start: 11-18-2023 Letter encounter Mammography Coordinator [facility] Start: 08-14-2023 End: 08-14-2023 Subsequent hospital visit by physician Bone D[facility] Work Phone: Radiology Comment on above: Asymptomatic [place] [Z78.0] Encounter for other screening for malignant neoplasm of breast [Z12.39] Start: 07-05-2023 End: 07-05-2023 Subsequent hospital visit by physician [facility] [place] [facility] Work Phone: Radiology Start: 03-29-2023 End: 03-31-2023 Patient encounter procedure Derek Phillips PRINTED CIRCUIT DESIGNER Work Phone: [facility] Start: 03-29-2023 Patient encounter procedure Derek Phillips PRINTED CIRCUIT DESIGNER Work Phone: [facility]; [facility] Work Phone: Start: 03-29-2023 Review Derek Phillips PRINTED CIRCUIT DESIGNER Work Phone: [facility] Start: 03-21-2023 Non-patient / Non-visit [employer] Niurka Phillips Work Phone: [facility] Work Phone: Start: 03-17-2023 Non-patient / Non-visit [employer] Niurka Phillips Work Phone: [facility] Start: 03-17-2023 End: 03-17-2023 ambulatory [employer] Derek Phillips Work Phone: [facility] Work Phone: Start: 03-17-2023 End: 03-17-2023 Patient encounter procedure [employer]C Derek Phillips [facility] Work Phone: Start: 02-24-2023 Registered Referred COMMERCIAL FISHER-Niurka Phillips Work Phone[facility] Work Phone: Start: 02-24-2023 Non-patient / Non-visit [employer]C Niurka Phillips Work Phone: [facility] Work Phone: Start: 02-15-2023 End: 02-15-2023 ambulatory [employer]C Derek Phillips Work Phone: [facility] Work Phone: Start: 02-15-2023 End: 02-15-2023 Patient encounter procedure COMMERCIAL FISHER-Niurka Phillips Work Phone: [facility] Work Phone: Start: 02-15-2023 End: 02-15-2023 Patient encounter procedure COMMERCIAL FISHER-Niurka Phillips Work Phone: [facility] Work Phone: Start: 02-03-2023 End: 02-03-2023 Subsequent hospital visit by physician [facility] (I-Stat) Work Phone: Cat Scan Start: 01-24-2023 End: 02-03-2023 Office outpatient new 45 minutes Derek Phillips CNP Work Phone: [facility] Start: 01-24-2023 Review Derek Phillips CNP Work Phone: [facility] Procedures Date Procedure Procedure Detail Performing Clinician Start: 01-20-2025 Methicillin resistant Staphylococcus aureus screening test Derek Phillips [employer]C Work Phone: Start: 08-14-2023 Screening digital breast tomosynthesis shantell Javier (Supervisor [employer]) (Hist) [place] Start: 07-05-2023 Radex spine lumbosacral 2/3 views Concepcion (Supervisor [employer]) (Hist) [place] Start: 03-17-2023 End: 03-20-2023 Echo Complete Procedure Note: See Note; NOTES: [facility] [address] [place] [address] Echo Complete 03/17/23 1448 MR#: [id number] Acct: [id number] Name: PAOLA CASTELLANOS Rep #: [id number] : 1950 73 From: Angie Egan MD Attending Dr: Dr. Angie Egan MD Status: REG CLI Ordering Dr: Angie Egan MD Date: 03/17/23 Location: [facility] Sex: F C Admitted: Reason For Study: PALPITATIONS Procedure This was a 2D Doppler, Color Flow transthoracic echocardiogram. Exam performed in department. Left Ventricle Normal LV size. Mild concentric left ventricular hypertrophy. The left ventricular ejection fraction is 65 %. Normal diastology for age. Right Ventricle Normal right ventricle. Atria The left and right atria are normal. Mitral Valve Trivial mitral valve insufficiency. Tricuspid Valve Trivial tricuspid valve insufficiency. Normal pulmonary artery pressure. Aortic Valve Trisinus/trileaflet aortic valve. Mild (1+) aortic valve insufficiency. Pulmonic Valve The pulmonic valve is not well visualized. Trivial pulmonic valve insufficiency. Great Vessels Normal sized aortic root. Pericardium/Pleural Trace to small pericardial effusion. MMode/2D Measurements Calculations LVIDd: 4.2 cm IVSd: 1.2 cm Ao root diam: 3.1 cm LVIDs: 2.8 cm LVPWd: 1.1 cm RVDd: 3.6 cm FS: 32.4 % ___ LAV(MOD-bp): 33.6 ml LVAd ap4: 25.2 cm2 SV(MOD-sp4): 47.0 ml LAV(MOD-bp) Indexed: 18.1 ml/m2 LVLd ap4: 7.2 cm LAV(MOD-sp2): 31.1 ml EDV(MOD-sp4): 72.5 ml LAV(MOD-sp4): 36.7 ml EDV(sp4-el): 75.2 ml LVAs ap4: 13.8 cm2 LVLs ap4: 6.0 cm ESV(MOD-sp4): 25.6 ml ESV(sp4-el): 27.0 ml EF(MOD-sp4): 64.8 % EF(sp4-el): 64.1 % ___ SV(sp4-el): 48.2 ml LA A4 area: 15.3 cm2 LA dimension(2D): 3.7 cm ___ RA A4 area: 14.8 cm2 Time Measurements MV dec time: 0.23 sec Doppler Measurements Calculations MV E max olamide: 84.7 cm/sec Lat Peak E' Olamide: 7.7 cm/sec Med Peak E' Olamide: 6.3 cm/sec MV A max olamide: 91.7 cm/sec E/E' lat: 11.0 E/E' med: 13.5 MV E/A: 0.92 ___ Ao V2 max: 138.2 cm/sec AI max olamide: 365.1 cm/sec LV V1 max: 141.3 cm/sec Ao max P.6 mmHg AI max P.3 mmHg LV V1 max P.0 mmHg AI dec slope: 209.1 cm/sec2 AI P1/2t: 511.4 msec ___ PA V2 max: 97.6 cm/sec TR max olamide: 208.9 cm/sec TR max P.5 mmHg ECHO/Echo Complete Interpretation Summary Mild concentric left ventricular hypertrophy. The left ventricular ejection fraction is 65 %. Mild (1+) aortic valve insufficiency. Trace to small pericardial effusion. Ordering Physician: Angie Egan Referring Physician: DEREK PHILLIPS Performed By: Peggy Zapien [facility] 03/20/23 1002 Date Angie Egan MD CC: [employer] Derek Phillips; Dr. Angie Egan MD Date Dictated: 03/17/23 1448 Date Transcribed: 03/20/23 1002 Mortgage Loan Interviewer: Signed Derek Phillips [facility] Work Phone: Start: 02-15-2023 End: 02-15-2023 Cardiology Visit Report Procedure Note: See Note; NOTES: [facility] [address] [place], [place] [address] OFFICE VISIT Date of Service: 02/15/23 MR#: [id number] Acct: [id number] Name: PAOLA CASTELLANOS Rep #: [id number] : 1950 Provider: Dr. Angie Egan MD Age/Sex: 73/F Location: [facility] Status: Signed HPI HPI History of Present Illness Details: This patient has recently moved into the area and wishes to establish cardiac care with us. She has past medical history significant for coronary artery disease with percutaneous intervention with drug-eluting stent to the proximal LAD few years ago. Denies any chest pains or shortness of breath either at rest or with exertion. No orthopnea. No PND. Occasional ankle edema. No lightheadedness or dizziness. No syncope or presyncope. O ccasionally she feels her heart racing. That occurs very briefly and maybe occurs once every month or 2 months. Intake Vital Signs 02/15/23 11:07 Height 5 ft 5 in Weight: 177 lb BMI 29.4 BP 118/78 Blood Pressure Location Lt brachial Position Sitting Respiration 16 Pulse 53 L Pulse Source Monitor Intake Visit Reasons: CAD / EST (JATINDER) Director Of Video Analytics Required: No Accompanied by: None Is patient in pain?: No Allergies No Known Allergies Allergy (Unverified 02/15/23 11:01) Medications amoxicillin 500 mg capsule 2,000 mg PO ONCE PRN dental procedures 02/13/23 [History Confirmed 02/15/23] ascorbic acid (vitamin C) 500 mg capsule,extended release 500 mg PO DAILY 02/13/23 [History Confirmed 02/15/23] aspirin 81 mg tablet,delayed release 81 mg PO DAILY 02/13/23 [History Confirmed 02/15/23] atorvastatin 40 mg tablet 40 mg PO QHS 02/13/23 [History Confirmed 02/15/23] calcium carbonate 600 mg calcium (1,500 mg) tablet (Calcium) 600 mg PO BID 02/13/23 [History Confirmed 02/15/23] cholecalciferol (vitamin D3) 50 mcg (2,000 unit) capsule 50 mcg PO DAILY 02/13/23 [History Confirmed 02/15/23] citalopram 20 mg tablet 20 mg PO DAILY 02/13/23 [History Confirmed 02/15/23] collagen,hydrolysate 500 mg-biotin 800 mcg-ascorbic acid 50 mg capsule (Collagen 1500 Plus C) 1 cap PO DAILY 02/13/23 [History Confirmed 02/15/23] famotidine 20 mg tablet 20 mg PO BID 02/13/23 [History Confirmed 02/15/23] gabapentin 100 mg capsule 200 mg PO BID 02/13/23 [History Confirmed 02/15/23] inulin 2 gram chewable tablet (Prebiotic Fiber) 2 g PO DAILY 02/13/23 [History Confirmed 02/15/23] lactobacillus combination no.4 3 billion cell capsule (Probiotic) 3,000 mmu cells PO .3x/wk 02/13/23 [History Confirmed 02/15/23] multivitamin 1 tab PO DAILY 02/13/23 [History Confirmed 02/15/23] omega 0-hwv-hyv-fish oil 300 mg-1,000 mg capsule,delayed release (Fish Oil) 1 cap PO DAILY 02/13/23 [History Confirmed 02/15/23] sour ty extract 1,000 mg capsule (Tart Ty Extract) 3,000 mg PO DAILY 02/13/23 [History Confirmed 02/15/23] timolol maleate 0.5 % eye drops 1 drp ophthalmic (eye) BID 02/13/23 [History Confirmed 02/15/23] zinc acetate 50 mg (zinc) capsule 50 mg PO DAILY 02/13/23 [History Confirmed 02/15/23] Ejection fraction %: 60 to 64 PFSH Medical History (Updated 02/15/23 @ 11:[address] Angie Egan MD) BMI 28.0-28.9,adult CAD (coronary artery disease) Cervical spondylosis Chronic neck pain Depression Elevated fasting glucose Essential hypertension Fallen bladder Former smoker GERD (gastroesophageal reflux disease) Glaucoma Hyperlipidemia IBS (irritable bowel syndrome) Pulmonary nodule Vitamin D deficiency Surgical History (Updated 02/15/23 @ 11:[address] Angie Egan MD) History of coronary artery stent placement History of right shoulder replacement Hx of bilateral cataract extraction Hx of cholecystectomy ( 2006) Hx of dilation and curettage ( 1972) Hx of hammer toe correction ( 2008) Hx of total hysterectomy Hx of total knee replacement ( 2008) Hx of varicose vein stripping ( 2019) Family History Brother Cancer lung AAA (abdominal aortic aneurysm) Mother AAA (abdominal aortic aneurysm) CAD (coronary artery disease) Aunt Breast cancer Social History Smoking Status: Former smoker how long ago did patient quit smokin caffeine: Yes (3-4 cups 1/2 caf daily) ROS Const Const: Negative for fatigue or weakness ENT ENT: Positive for balance problems (upon standing); Negative for dizziness Cardio Chest Pain: No Palpitations: Yes (intermittently x 1 year) feels like its: fast Edema: Left (attributes to varicose vein stripping) and None Muscle aches with walking: None Resp Respiratory: Negative for SOB with activity, SOB at rest or SOB orthopnea SOB lying down GI GI: Positive for heartburn (intermittently, relieved with medication); Negative nausea or vomiting Musc Musc: Positive for balance problems (upon standing); Negative for muscle weakness Neuro Neuro: Negative for dizziness, lightheadedness, near syncope, syncope or weakness Endo Endo: Negative for fatigue Cardiology Exam Const Appearance: comfortable and no acute distress Nutritional Appearance: well nourished Neck Neck: no JVD Carotids: Negative bruit Chest Auscultation: Bilateral: Clear to Auscultation Cardio Rate: regular rate Rhythm: regular rhythm Heart sounds: S1 normal and S2 normal Neuro General: patient alert, patient awake and patient oriented x3 Extremities Lower Extremity Edema: None: Bilateral Supplemental Info Supplemental Information ECHOCARDIOGRAM 07/09/19: CONCLUSIONS 1. Left ventricle is nondilated with normal global systolic function and visually estimated ejection fraction 60-65%. Doppler parameters are consistent with grade 1 diastolic dysfunction. 2. There is moderate concentric left ventricular hypertrophy at 1.4cm. 3. Right ventricle is nondilated with normal systolic function. 4. Left atrium is nondilated. 5. There is mild aortic sclerosis without significant stenosis. There is mild centrally directed aortic regurgitation. 6. No convincing evidence of pulmonary hypertension. CT CHEST 08/16/22 @ [facility] in [place]: FINDINGS A right shoulder arthroplasty causes metal artifact at the thoracic inlet. The thyroid is not enlarged. Calcification is present in the aorta and proximal great vessels. A left coronary stent is seen and there is scattered coronary calcification. No adenopathy is identified. There is no pleural or pericardial effusion. No hiatal hernia is identified. The visualized upper abdomen shows surgical clips in the gallbladder fossa and a significant amount of fluid in the stomach. IMPRESSION Multiple small pulmonary nodules, possibly inflammatory. No comparison studies available, however. Follow-up CT suggested in 3-6 months. Other findings as above. Labs: No Data to Display Diagnostics: Electrocardiogram Pulmonary: No Data to Display Past Visits: Cardiology Visit 02/15/23 Assessment and Plan Assessment and Plan (1) CAD (coronary artery disease): Status: Chronic Plan: Continue aspirin. Atorvastatin. (2) History of coronary artery stent placement: Status: Chronic Comment: EVAN to proximal LAD on 07/22/2019 Plan: Continue aspirin. (3) Hyperlipidemia: Status: Chronic Plan: Atorvastatin. Continue to manage as per primary care physician. (4) Palpitations: Status: Chronic Plan: Rare. However will check an event monitor. Check TSH. Check echo. Orders: Orders 12 Lead EKG performed by BMS Today E78.5 - Hyperlipidemia, unspecified, I10 - Essential (primary) hypertension, I25.10 - Atherosclerotic heart disease of [place] coronary artery without angina pectoris Plan Details Follow Up: 6 Months Coding Level of Care Code Off vis,new,level 3 Diagnoses CAD (coronary artery disease) I25.10 History of coronary artery stent placement Z95.5 Hyperlipidemia E78.5 Palpitations R00.2 Coding Level of Care Code Off vis,new,level 3 Diagnoses CAD (coronary artery disease) I25.10 History of coronary artery stent placement Z95.5 Hyperlipidemia E78.5 Palpitations R00.2 02/15/23 1131 <Electronically signed by Angie Egan MD> Date Angie Egan MD Cosigner Signature: Date (if applicable) CC: COMMERCIAL FISHERCindy Phillips [facility] Work Phone: Start: 02-15-2023 End: 02-21-2023 12 Lead EKG performed by BMS Procedure Note: See Note; NOTES: [facility] [address] [place] [address] 12 Lead EKG performed by BMS 02/15/23 1058 MR#: [id number] Acct: [id number] Name: PAOLA CASTELLANOS Rep #: [id number] : 1950 73 From: Angie Egan MD Attending Dr: Dr. Angie Egan MD Status: REG AMB Ordering Dr: Angie Egan MD Date: 02/15/23 Location: [facility] Sex: F C Admitted: BMS/12 Lead EKG performed by BMS Sinus Bradycardia - Negative precordial T-waves. WITHIN NORMAL LIMITS 02/15/23 1138 <Electronically signed by Angie Egan MD> Date Angei Egan MD CC: COMMERCIAL FISHER-C Derek Phillips Date Dictated: 02/15/23 1058 Date Transcribed: 02/15/231057 Mortgage Loan Interviewer: DAVID Phillips [facility] Work Phone: Start: 02-03-2023 Ct thorax w/o contrast material Concepcion (Supervisor [employer]) (Hist) [place] Bilateral replacemen t of knee joints Meeta Slarb PRESIDENTIAL HELICOPTER CREW CHIEF Comment on above: 2007 Bilateral replacemen t of knee joints Verónica Manjoank [facility] Comment on above: 2007 Bladder tack Meeta Slarb LP N Comment on above: 2007 Bladder tack Verónica Manchak LACE INSPECTOR Comment on above: 2007 Cholecystectomy Meeta Slarb [employer]IDENTIAL HELICOPTER CREW CHIEF Comment on above: 2006 Cholecystectomy Verónica Manc hak LACE INSPECTOR Comment on above: 2006 Coronary angioplasty Derek Phillips PRINTED CIRCUIT DESIGNER Work Phone: Comment on above: Left. LCA stent Coronary angioplasty Verónica Cachorrok LACE INSPECTOR Comment on above: Left. LCA stent Dilation and curetta ge of uterus Meeta Slarb [employer]IDENT[employer] HEL[employer]OPTER CRE[employer] CHIEF Comment on above: 1972 Dilation and curetta ge of uterus Verónica Manjoank LACE INSPECTOR Comment on above: 1973 Extraction of cataract Boy a Slarb [employer]IDENTIAL HELICOPTER CREW CHIEF Extraction of cataract Tegan arnold Garza LACE INSPECTOR H/O: artificial joint History of right shoulder replacement Meeta Slarb [employer]IDENTIAL HELICOPTER CREW CHIEF H/O: artificial joint History of right shoulder replacement Derek Phillips [facility] Work Phone: H/O: artificial joint History of right shoulder replacement Derek Phillips [facility] Work Phone: Comment on above: had CT RUE 12/04/20 (see scanned document) , showed mild glenohumeral OA, glenohumeral joint effusion, 4mm noncalcified pulm nodule R lung H/O: artificial joint History of right shoulder replacement Verónica Ivoryk LACE INSPECTOR Comment on above: had CT RUE 12/04/20 (see scanned document) , showed mild glenohumeral OA, glenohumeral joint effusion, 4mm noncalcified pulm nodule R lung hammer toe surgery Meeta Sl arb [employer]IDENT[employer] HEL[employer]TER CRE[employer] CHIEF Comment on above: left foot 2009 hammer toe surgery Verónica M annalee [facility] Comment on above: left foot 2009 History of placement of stent for coronary artery disease History of coronary artery stent placement COMMERCIAL FISHER-C Derek Phillips Work Phone: Comment on above: EVAN to proximal LAD on 07/22/2019 History of placement of stent for coronary artery disease Status post coronary artery stent placement Nurse Card Wstr Work Phone: Hysterectomy Meeta Slarb LP N Hysterectomy Derek Phillips [facility] Work Phone: Comment on above: Total Hysterectomy Verónica Manjoank [facility] Comment on above: Total Ophthalmic examinati on and evaluation Meeta Slarb [employer]IDENTIAL HELICOPTER CREW CHIEF Comment on above: 06/02/2022 Dr. Yaron Aguila Ophthalmic examinati on and evaluation Verónica Cachorrok [facility] Comment on above: 06/02/2022 Dr. Yaron Aguila Screening colonoscopy Meeta Slarb [employer]IDENTIAL HELICOPTER CREW CHIEF Comment on above: 2017 Dr. Florencio sutton 10 year repeat Screening colonoscopy Chelse a Kayla [facility] Comment on above: 2017 Dr. Florencio sutton 10 year repeat Screening mammography Meeta Slarb [employer]IDENTIAL HEL[employer]OPTER CREW CHIEF Comment on above: 07/2022 [place] Screening mammography Chelse a Kayla [facility] Comment on above: 07/2022 [place] Total shoulder replacement Meeta Slarb [employer]IDENTIAL HELICOPTER CREW CHIEF Total shoulder replacement Verónica Garza LACE INSPECTOR Vein surgery left leg Meeta Andreearb [employer]IDENTIAL HELICOPTER CREW CHIEF Comment on above: 2018 Vein surgery left leg Edward Garza [facility] Comment on above: 2018 Plan of Treatment Date Care Activity Detail Author Start: 01-20-2025 Nasal Screen MRSA/MSSA Nasal Screen MRSA/MSSA [facility] Start: 01-20-2025 Methicillin resistan t Staphylococcus aureus screening test [facility] Start: 09-23-2024 End: 09-23-2024 Nursing evaluation of patient and report 09/23/2024 1:50 PM EDT Nurse Visit Cardiology [address] [place], [place] [id number] Wstr, Nurse Card [address] [address] chest pain hx PCI in 2019 Cardiology Comment on above: chest pain hx PCI in 2019 Start: 09-23-2024 End: 09-23-2024 Patient encounter procedure Nuclear Medicine Comment on above: chest pain hx PCI in 2019 Start: 08-16-2024 End: 08-16-2024 Patient encounter procedure 08/16/2024 11:10 AM EDT Appointment Mammogram [address] [place] [address] Screening Mammogram Mammogram Comment on above: Screening Mammogram Start: 05-29-2024 Advance Directive Discussion Advance Directive Discussion [facility] Start: 02-29-2024 End: 02-29-2024 Patient encounter procedure 02/29/2024 2:45 PM EDT Office Visit Dermatology [address] [place] [address] Meagan Hoffman, AP PROCESSOR.PRINTED CIRCUIT DESIGNER [address] [place] [address] [facility] Comment on above: [facility] Start: 01-28-2024 Covid-19 Vaccine () Covid-19 Vaccine () [facility] Start: 01-28-2024 Influenza vaccination [facility] Start: 05-29-2023 Advance Directive Discussion Advance Directive Discussion [facility] Start: 05-29-2023 Behavioral Health Screening Behavioral Health Screening [facility] Start: 05-29-2023 Depression Assessment Depression Ass essment [facility] Start: 03-31-2023 Patient Education Medicare Wel lness Visit, Female [facility] Work Phone: Start: 03-29-2023 Procedure Education Eprescribe d prescriptions (G8553) [facility] Work Phone: Start: 03-29-2023 Provider Instruction s for Treatment Follow up in 3-4 months for gen med [facility] Work Phone: Start: 03-29-2023 Hepatitis c antibody HEPATITIS C ANTIBODY (39394) [facility] Work Phone: Start: 02-03-2023 Provider Instruction s for Treatment [facility] Work Phone: Start: 01-27-2023 Covid-19 Vaccine ( season) Covid-19 Vaccine ( season) [facility] Start: 01-27-2023 Influenza vaccination Influenza Vacc ine (#1) [facility] Start: 01-24-2023 Procedure Education Eprescribe d prescriptions (G8553) [facility] Work Phone: Start: 01-24-2023 Provider Instruction s for Treatment Follow up for Medicare exam. [facility] Work Phone: Start: 01-22-2023 RSV Vaccine (1 - 1-d ose 75+ series) RSV Vaccine (1 - 1-dose 75+ series) [facility] Start: 12-19-2022 Shingrix Vaccine (2 of 3) Shingrix Vaccine (2 of 3) [facility] Start: 05-29-2022 Advance Directive Discussion Advance Directive Discussion [facility] Start: 05-29-2022 Depression Assessment Depression Ass essment [facility] Start: 01-08-2021 Pneumococcal Vaccine : 50+ (2 of 2 - PCV) Pneumococcal Vaccine: 50+ (2 of 2 - PCV) [facility] Start: 01-08-2021 Pneumococcal Vaccine : 65+ (2 of 2 - PCV) Pneumococcal Vaccine: 65+ (2 of 2 - PCV) [facility] Start: 12-19-2020 Urine microalbumin profile DTaP,Tdap,Td Vaccine (2 - Td or Tdap) [facility] Start: 01-22-2013 Bone Density Screening Bone Density Screening [facility] Start: 01-22-2013 Pneumococcal Vaccine : 65+ (1 - PCV) Pneumococcal Vaccine: 65+ (1 - PCV) [facility] Start: 01-22-2013 Screening for osteoporosis Bone Density Screening [facility] Start: 2008 RSV Vaccine (1 - 1-d ose 60+ series) RSV Vaccine (1 - 1-dose 60+ series) [facility] Start: 01-22-1998 Shingrix Vaccine (1 of 2) Shingrix Vaccine (1 of 2) [facility] Start: 01-22-1993 Cologuard (FIT-DNA) Cologuard (FIT-D NA) [facility] Start: 01-22-1993 Colonoscopy Colonoscopy [facility] Start: 01-22-1993 Colorectal Cancer Screening Colorectal Cancer Screening [facility] Start: 01-22-[address] Colonography [facility] Start: 01-22-1993 Diabetes Screening Diabetes Screenin g [facility] Start: 01-22-1993 Fecal Occult Blood Fecal Occult Bloo d [facility] Start: 01-22-1993 Lipid 1996 panel - S edwige or Plasma Lipid Screening [facility] Start: 01-22-1993 Lipid panel Lipid Screening [facility] Start: 01-22-1993 Screening for malign ant neoplasm of colon [facility] Start: 01-22-1993 Sigmoidoscopy Sigmoidoscopy [facility] Start: 01-22-1967 Urine microalbumin profile DTaP,Tdap,Td Vaccine (1 - Tdap) [facility] Start: 01-22-1966 Anxiety Screening Anxiety Screening [facility] Start: 01-22-1966 Depression Screening Depression Scre ening [facility] Start: 01-22-1966 Hepatitis C Screening Hepatitis C [facility] Start: 01-22-1966 Hepatitis C screening Hepatitis C [facility] Start: 1950 Covid-19 Vaccine (#1) Covid-19 Vacci ne (#1) [facility] Cardiac event recording [facility] Patient referral [facility] Work Phone: [facility] Work Phone: [facility] Work Phone: [facility] Work Phone: [facility] Immunizations Immunization Date Immunization Notes Care Provider Britton esqueda 10-24-2022 zoster vaccine, live Derek Phillips PRINTED CIRCUIT DESIGNER Work Phone: [facility] Work Phone: 08-16-2022 zoster vaccine, live Derek Phillips PRINTED CIRCUIT DESIGNER Work Phone: [facility] Work Phone: 02-03-2022 influenza, seasonal, injectable Derek Phillips PRINTED CIRCUIT DESIGNER Work Phone: [facility] Work Phone: 02-03-2022 influenza virus vaccine, unspecified formulation [employer] Work Phone: [facility] 04-26-2021 COVID-Moderna (50 MCG/0.25 ML) Derek Phillips PRINTED CIRCUIT DESIGNER Work Phone: [facility] Work Phone: 08-27-2020 COVID-Moderna (50 MCG/0.25 ML) Derek Phillips PRINTED CIRCUIT DESIGNER Work Phone: [facility] Work Phone: 07-30-2020 COVID-Moderna (100 MCG/0.5 ML) Derek Phillips PRINTED CIRCUIT DESIGNER Work Phone: [facility] Work Phone: 01-09-2020 pneumococcal polysaccharide vaccine, 23 valent Derek Phillips PRINTED CIRCUIT DESIGNER Work Phone: [facility] Work Phone: 12-29-2015 pneumococcal polysaccharide vaccine, 23 valent Derek Phillips PRINTED CIRCUIT DESIGNER Work Phone: [facility] Work Phone: 12-19-2010 tetanus toxoid, redu tj diphtheria toxoid, and acellular pertussis vaccine, adsorbed Derek Jatinder PRINTED CIRCUIT DESIGNER Work Phone: [facility] Work Phone: Payers Date Payer Category Payer Self-pay 2024 Medicare (Managed Care) [facility]ADIA [facility]INO [facility] HMO [id number] 2023 Medicare [id number] 2022 Medicare HUMANA MEDICARE HUMANA GOLD PLUS [id number] 2022-Present [phone] [address] [address] [place] [address] HMO [id number] 2022 Private Health Insurance [id number] Unknown Humana/Medicare adv plan Unknown [id number] Unknown [id number] Unknown [id number] Unknown [id number] Unknown [id number] Unknown [id number] Unknown [id number] Social History Date Type Detail Facility Start: 07-19-2024 Caffeine Use Caffeine Use Comprehens [facility] Work Phone: Comment on above: 3-4 cups 1/2 caf meenu ly with daughter; has o wn apartment in law suite Tobacco Use: Tobacco Use: [facility] Work Phone: Comment on above: Quit 1973 Start: 02-15-2023 Tobacco smoking stat us [facility] Unknown if ever smoked [facility] Start: 1950 Sex Assigned At Female W [facility] Start: 1950 Sex Assigned At Not on file [facility] Start: 07-19-2024 Gender identity Not on file [facility] National Score (1-100), lower number is lower risk 33 [facility] Start: 08-16-2024 End: 01-20-2025 Tobacco smoking status NHIS Ex-smoker (finding) [facility] Clinical Notes 01-27-2023 to 01-20-2025 Note Date & Type Note Facility 01-20-2025 Evaluation note Diagnosis Onset Date Resolution Spigelian hernia chronic December 282024 9:37am [facility] Work Phone: 1(357) 674-513604-28-2025 NoteHNO ID: [id number] Author: JAQUI TURNER RN Service: ? Author Type: Registered Nurse Type: Progress Notes Filed: 09/23/2024 14:37 Note Text: RADIOLOGY SERVICE PROGRESS NOTE SERVICE DATE: 09/23/2024 SERVICE TIME: 1350 PATIENT IDENTITY VERIFICATION COMPLETED USING TWO (2) METHODS: Patient confirmed name and Date of verbally. ALLERGIES AND MEDICATIONS REVIEWED BY: Jaqui Turner RN PROCEDURE TYPE: NM STRESS: 0.4 mg of Lexiscan was administered IV at 1357 over 10 Seconds by Jaqui Turner RN Reversal agent used:None LOT [id number] 02/21 IV SITE: IV palced by nuclear tecnologist POST EXAM PIV STATUS: Discontinued by Nurse Companion PATIENT DISCHARGED TO: Nuclear Medicine Department for post stress imaging A Diagnostic radioactive procedure has taken place, with no further precautions necessary other than routine body substance precautions. More information regarding radiation safety can be found using this link: [email or web address]%[email or web address]-% 20Diagnostic%20Nuclear%20Medicine%20Procedures.pdf SIGNATURE: Jaqui Turner RN PATIENT NAME:Paola Castellanos DATE: 09/23/24 [facility] History of Present illness Narrative* Jaqui Turner RN - 09/23/2024 2:34 PM EDT RADIOLOGY SERVICE PROGRESS NOTE SERVICE DATE: 09/23/2024 SERVICE TIME: 1350 PATIENT IDENTITY VERIFICATION COMPLETED USING TWO (2) METHODS: Patient confirmed name and Date of verbally. ALLERGIES AND MEDICATIONS REVIEWED BY: Jaqui Turner RN PROCEDURE TYPE: NM STRESS: 0.4 mg of Lexiscan was administered IV at 1357 over 10 Seconds by Jaqui Turner RN Reversal agent used:None LOT [id number] 02/21 IV SITE: IV palced by nuclear tecnologist POST EXAM PIV STATUS: Discontinued by Nurse Companion PATIENT DISCHARGED TO: Nuclear Medicine Department for post stress imaging A Diagnostic radioactive procedure has taken place, with no further precautions necessary other than routine body substance precautions. More information regarding radiation safety can be found usingthis link: [email or web address] 20Diagnostic%20Nuclear%20Medicine%20Procedures.pdf SIGNATURE: Jaqui Turner RN PATIENT NAME:Paola Castellanos DATE: 09/23/24 TIME: 2:34 PM [facility] History of Present illness Narrative* Kareem Sepulveda RT(R) - 09/23/2024 12:30 PM EDT RADIOLOGY SERVICE PROGRESS NOTE SERVICE DATE: 09/23/2024 SERVICE TIME: 12:25 PM PATIENT IDENTITY VERIFICATION COMPLETED USING TWO (2) STANDARD IDENTIFIERS: Name and Date of confirmed by patient verbally FALL SCREENING: Has the patient had 2 falls in the last year or 1 fall with injury or currently using an Ambulatory Assistive Device (Walker, Cane, Wheelchair, Crutches, etc.)? No PATIENT GENDER DATA: .female : No ALLERGIES: Reviewed and unchanged MEDICATIONS REVIEWED: No PATIENT RELEVANT IMPLANT DATA REVIEWED: Not Applicable PATIENT PRESENTS WITH AN IMPLANTABLE OR ATTACHED BIAZZI NITRATOR OPERATOR: No CREATININE: No results found for: CREAT, EGFROTH, EGFRAA DIAGNOSTIC CT PERFORMED: No IV SITE: Ambulatory: A peripheral IV was started in the Right antecubital site with a Angio cath: 22 gauge. POST EXAM PIV STATUS: Discontinued PROCEDURE TYPE: ID Stress: 13.6 mCi Rh12t-Hohqphv was administered IV for Rest Imaging at 12:40 by . 33.6 mCi Dd89x-Ytvaxsf was administered IV for Stress Imaging at 13:57 by . PATIENT DISCHARGED TO: Ambulatory patient, left ID department area. Is this a therapy: No A Diagnostic radioactive procedure has taken place, with no further precautions necessary other than routine body substance precautions. More information regarding radiation safety can be found usingthis link: [email or web address]%[email or web address]-% 20Diagnostic%20Nuclear%20Medicine%20Procedures.pdf SIGNATURE: YANETH Porter) PATIENT NAME: Paola Castellanos DATE: September 23, 2024 TIME: 1:50 PM PAGER/CONTACT #: documented in [facility] encounterThe [facility]04-[facility]25 NoteHNO ID: [id number] Author: KAREEM SEPULVEDA RT (R) Service: Nuclear Medicine Author Type: Technologist Type: Progress Notes Filed: 09/23/2024 14:07 Note Text: RADIOLOGY SERVICE PROGRESS NOTE SERVICE DATE: 09/23/2024 SERVICE TIME: 12:25 PM PATIENT IDENTITY VERIFICATION COMPLETED USING TWO (2) STANDARD IDENTIFIERS: Name and Date of confirmed by patient verbally FALL SCREENING: Has the patient had 2 falls in the last year or 1 fall with injury or currently using an Ambulatory Assistive Device (Walker, Cane, Wheelchair, Crutches, etc.)? No PATIENT GENDER DATA: .female : No ALLERGIES: Reviewed and unchanged MEDICATIONS REVIEWED: No PATIENT RELEVANT IMPLANT DATA REVIEWED: Not Applicable PATIENT PRESENTS WITH AN IMPLANTABLE OR ATTACHED BIAZZI NITRATOR OPERATOR: No CREATININE: No results found for: CREAT, EGFROTH, EGFRAA DIAGNOSTIC CT PERFORMED: No IV SITE: Ambulatory: A peripheral IV was started in the Right antecubital site with a Angio cath: 22 gauge. POST EXAM PIV STATUS: Discontinued PROCEDURE TYPE: NM Stress: 13.6 mCi Xb12d-Ksgrqqm was administered IV for Rest Imaging at 12:40 by . 33.6 mCi Ki50h-Lgigqej was administered IV for Stress Imaging at 13:57 by . PATIENT DISCHARGED TO: Ambulatory patient, left ID department area. Is this a therapy: No A Diagnostic radioactive procedure has taken place, with no further precautions necessary other than routine body substance precautions. More information regarding radiation safety can be found using this link: [email or web address]-% 20Diagnostic%20Nuclear%20Medicine%20Procedures.pdf SIGNATURE: RT German(Valente) PATIENT NAME: Paola Castellanos DATE: September 23, 2024 TIME: 1:50 PM PAGER/CONTACT #:[facility]03-21-2025 History of Present illness Narrative* Sommer Danielle RT(R) - 08/16/2024 11:10 AM EDT Radiology Service Progress Note PATIENT NAME: Paola Castellanos DATE OF SERVICE: August 16, 2024 TIME: 10:58 AM PATIENT IDENTITY VERIFICATION COMPLETED USING TWO (2) IDENTIFIERS: Name and Date of confirmedby patient verbally. FALL SCREENING: Has the patient had 2 falls in the last year or 1 fall with injury or currently using an Ambulatory Assistive Device (Walker, Cane, Wheelchair, Crutches, etc.)? No PATIENT GENDER DATA: Assigned female at . status: : No status:NO. PATIENT RELEVANT IMPLANT DATA REVIEWED: Not Applicable PATIENT PRESENTS WITH AN IMPLANTABLE OR ATTACHED BIAZZI NITRATOR OPERATOR: No RADIOLOGY DEPARTMENT: Mammography PERIPHERAL IV DATA: Not applicable SIGNED BY: RT Albert(Valente) August 16, 2024 10:58 AM documented in this encounterThe [facility]03-21-2025 NoteHNO ID: [id number] Author: SOMMER DANIELLE RT(R) Service: ? Author Type: Technologist Type: Progress Notes Filed: 08/16/2024 10:58 Note Text: Radiology Service Progress Note PATIENT NAME: Paola Castellanos DATE OF SERVICE: August 16, 2024 TIME: 10:58 AM PATIENT IDENTITY VERIFICATION COMPLETED USING TWO (2) IDENTIFIERS: Name and Date of confirmed by patient verbally. FALL SCREENING: Has the patient had 2 falls in the last year or 1 fall with injury or currently using an Ambulatory Assistive Device (Walker, Cane, Wheelchair, Crutches, etc.)? No PATIENT GENDER DATA: Assigned female at . status: : No status: NO. PATIENT RELEVANT IMPLANT DATA REVIEWED: Not Applicable PATIENT PRESENTS WITH AN IMPLANTABLE OR ATTACHED BIAZZI NITRATOR OPERATOR: No RADIOLOGY DEPARTMENT: Mammography PERIPHERAL IV DATA: Not applicable SIGNED BY: YANETH Price) August 16, 2024 10:58 [facility]02-21-2025 History of Present illness Narrative* Reef Irena Ramos RT(R) - 07/19/2024 11:00 AM EST Radiology Service Progress Note DATE OF SERVICE: July 19, 2024 TIME: 1:15 PM PATIENT IDENTITY VERIFICATION COMPLETED USING TWO (2) STANDARD IDENTIFIERS: Name and Date of confirmed by patient verbally. FALL SCREENING: Has the patient had 2 falls in the last year or 1 fall with injury or currently using an Ambulatory Assistive Device (Walker, Cane, Wheelchair, Crutches, etc.)? No PATIENT GENDER DATA: Assigned female at . status: : No status:NO. PATIENT RELEVANT IMPLANT DATA REVIEWED: Yes PATIENT PRESENTS WITH AN IMPLANTABLE OR ATTACHED BIAZZI NITRATOR OPERATOR: No ALLERGIES: Reviewed and unchanged CONTRAST ALLERGY: NO. EXAM: CT -CONTRAST INDUCED NEPHROPATHY RISK FACTORS: Patient age > 60 years CREATININE: No results found for: CREAT, EGFROTH, EGFRAA P.O.C.T. RESULTS: POC done: Yes, See Lab Tab July 19, 2024 TREATMENT: N/A PERIPHERAL IV DATA: Ambulatory: A peripheral IV was started in the Left forearm with a Angio cath: 22 gauge. RADIOLOGY DEPARTMENT: CT; Exam(s) Completed: Abdomen/Pelvis SIGNATURE: YANETH [place]en[place]) PATIENT NAME: Paola Castellanos DATE: July 19, 2024 TIME: 1:15 PM documented in [facility] encounterThe [facility] NoteHNO ID: [id number] Author: IRENA TSAI RT (R) Service: ? Author Type: Grey Goods Tester Type: Progress Notes Filed: 07/19/2024 13:15 Note Text: Radiology Service Progress Note DATE OF SERVICE: July 19, 2024 TIME: 1:15 PM PATIENT IDENTITY VERIFICATION COMPLETED USING TWO (2) STANDARD IDENTIFIERS: Name and Date of confirmed by patient verbally. FALL SCREENING: Has the patient had 2 falls in the last year or 1 fall with injury or currently using an Ambulatory Assistive Device (Walker, Cane, Wheelchair, Crutches, etc.)? No PATIENT GENDER DATA: Assigned female at . status: : No status: NO. PATIENT RELEVANT IMPLANT DATA REVIEWED: Yes PATIENT PRESENTS WITH AN IMPLANTABLE OR ATTACHED BIAZZI NITRATOR OPERATOR: No ALLERGIES: Reviewed and unchanged CONTRAST ALLERGY: NO. EXAM: CT -CONTRAST INDUCED NEPHROPATHY RISK FACTORS: Patient age > 60 years CREATININE: No results found for: CREAT, EGFROTH, EGFRAA P.O.C.T. RESULTS: POC done: Yes, See Lab Tab July 19, 2024 TREATMENT: N/A PERIPHERAL IV DATA: Ambulatory: A peripheral IV was started in the Left forearm with a Angio cath: 22 gauge. RADIOLOGY DEPARTMENT: CT; Exam(s) Completed: Abdomen/Pelvis SIGNATURE: RT Lan(Valente) PATIENT NAME: Paola Castellanos DATE: July 19, 2024 TIME: 1:15 [facility]07-22-2024 History of Present illness Narrative* Irena Tsai RT(R) - 12/18/2023 2:20 PM EDT Radiology Service Progress Note PATIENT NAME: Paola Castellanos DATE OF SERVICE: December 18, 2023 TIME: 3:54 PM PATIENT IDENTITY VERIFICATION COMPLETED USING TWO (2) IDENTIFIERS: Name and Date of confirmedby patient verbally. FALL SCREENING: Has the patient had 2 falls in the last year or 1 fall with injury or currently using an Ambulatory Assistive Device (Walker, Cane, Wheelchair, Crutches, etc.)? No PATIENT GENDER DATA: Female. status: : No status: NO. PATIENT RELEVANT IMPLANT DATA REVIEWED: Yes PATIENT PRESENTS WITH AN IMPLANTABLE OR ATTACHED BIAZZI NITRATOR OPERATOR: No RADIOLOGY DEPARTMENT: CT; Exam(s) Completed: Chest PERIPHERAL IV DATA: Not applicable SIGNED BY: YANETH Montenegro) December 18, 2023 3:54 PM documented in this encounterThe [facility]07-22-2024 NoteHNO ID: [id number] Author: IRENA TSAI RT(R) Service: ? Author Type: Grey Goods Tester Type: Progress Notes Filed: 12/18/2023 15:54 Note Text: Radiology Service Progress Note PATIENT NAME: Paola Castellanos DATE OF SERVICE: December 18, 2023 TIME: 3:54 PM PATIENT IDENTITY VERIFICATION COMPLETED USING TWO (2) IDENTIFIERS: Name and Date of confirmed by patient verbally. FALL SCREENING: Has the patient had 2 falls in the last year or 1 fall with injury or currently using an Ambulatory Assistive Device (Walker, Cane, Wheelchair, Crutches, etc.)? No PATIENT GENDER DATA: Female. status: : No status: NO. PATIENT RELEVANT IMPLANT DATA REVIEWED: Yes PATIENT PRESENTS WITH AN IMPLANTABLE OR ATTACHED BIAZZI NITRATOR OPERATOR: No RADIOLOGY DEPARTMENT: CT; Exam(s) Completed: Chest PERIPHERAL IV DATA: Not applicable SIGNED BY: RT Lan(R) December 18, 2023 3:54 [facility]06-22-2024 Miscellaneous Notes* Letter - Coordinator, Mammography - 11/18/2023 8:35 AM EDT November 20, 2023 PID: [id number] Paola Castellanos [address] [facility] [address] [place] [address] Dear Ms. Castellanos, Your prior imaging studies have arrived and been compared to your current study. We are pleased to inform you that the results of your recent breast imaging exam on 08/14/2023 are normal. Early detection of cancer is very important. We also understand recommendations regarding breast cancer screening are controversial. Please discuss with your primary care provider which strategy is best for you and whether a mammogram is right for you. Your imaging studies and report will be [facility] as part of your permanent medical record and are available for your continuing care. Thank you for allowing us to help in meeting your health care needs. Sincerely, Dr. Hairston Interpreting Radiologist [facility] (Normal Old Films compared) documented in this encounterThe [facility]06-22-2024 Note* Letter - Coordinator, Mammography - 11/18/2023 8:35 AM EDT November 20, 2023 PID: [id number] Paola Castellanos [address] [facility] [address] [place] [address] Dear Ms. Castellanos, Your prior imaging studies have arrived and been compared to your current study. We are pleased to inform you that the results of your recent breast imaging exam on 08/14/2023 are normal. Early detection of cancer is very important. We also understand recommendations regarding breast cancer screening are controversial. Please discuss with your primary care provider which strategy is best for you and whether a mammogram is right for you. Your imaging studies and report will be kept on file at [facility] as part of your permanent medical record and are available for your continuing care. Thank you for allowing us to help in meeting your health care needs. Sincerely, Dr. Hairston Interpreting Radiologist [facility] (Normal Old Films compared) [facility] History of Present illness Narrative* Adrian Melendez RT(R) - 08/14/2023 11:15 AM EDT Radiology Service Progress Note PATIENT NAME: Paola Castellanos DATE OF SERVICE: August 14, 2023 TIME: 10:34 AM PATIENT IDENTITY VERIFICATION COMPLETED USING TWO (2) IDENTIFIERS: Name and Date of confirmedby patient verbally. FALL SCREENING: Has the patient had 2 falls in the last year or 1 fall with injury or currently using an Ambulatory Assistive Device (Walker, Cane, Wheelchair, Crutches, etc.)? No PATIENT GENDER DATA: Female. status: : No status: NO. PATIENT RELEVANT IMPLANT DATA REVIEWED: Not Applicable PATIENT PRESENTS WITH AN IMPLANTABLE OR ATTACHED BIAZZI NITRATOR OPERATOR: No RADIOLOGY DEPARTMENT: Bone Density PERIPHERAL IV DATA: Not applicable SIGNED BY: RT Aura(R) August 14, 2023 10:34 AM documented in this encounterThe [facility]03-18-[facility]24 History of Present illness Narrative* Afshan Diaz RT(R) - 08/14/2023 9:50 AM EDT Radiology Service Progress Note PATIENT NAME: Paola Castellanos DATE OF SERVICE: August 14, 2023 TIME: 10:04 AM PATIENT IDENTITY VERIFICATION COMPLETED USING TWO (2) IDENTIFIERS: Name and Date of confirmedby patient verbally. FALL SCREENING: Has the patient had 2 falls in the last year or 1 fall with injury or currently using an Ambulatory Assistive Device (Walker, Cane, Wheelchair, Crutches, etc.)? No PATIENT GENDER DATA: Female. status: : No status: NO. PATIENT RELEVANT IMPLANT DATA REVIEWED: Not Applicable PATIENT PRESENTS WITH AN IMPLANTABLE OR ATTACHED BIAZZI NITRATOR OPERATOR: No RADIOLOGY DEPARTMENT: Mammography PERIPHERAL IV DATA: Not applicable SIGNED BY: RT Chandler(R) August 14, 2023 10:04 AM documented in this encounterThe [facility]02-07-[facility]24 History of Present illness Narrative* Janki Richardson RT(R) - 07/05/2023 3:30 PM EST Radiology Service Progress Note PATIENT NAME: Paola Castellanos DATE OF SERVICE: July 05, 2023 TIME: 3:37 PM PATIENT IDENTITY VERIFICATION COMPLETED USING TWO (2) IDENTIFIERS: Name and Date of confirmedby patient verbally. FALL SCREENING: Has the patient had 2 falls in the last year or 1 fall with injury or currently using an Ambulatory Assistive Device (Walker, Cane, Wheelchair, Crutches, etc.)? No PATIENT GENDER DATA: Female. status: : No status: NO. PATIENT RELEVANT IMPLANT DATA REVIEWED: Not Applicable PATIENT PRESENTS WITH AN IMPLANTABLE OR ATTACHED BIAZZI NITRATOR OPERATOR: No RADIOLOGY DEPARTMENT: General X-ray: Exam(s) Completed: Spine X-Ray(s): Lumbar AP / LAT / L5-S1 PERIPHERAL IV DATA: Not applicable SIGNED BY: RT Isaac(R) July 05, 2023 3:37 PM documented in this encounterThe [facility]09-21-[facility]23 Instructions* Name Dates Details Follow up in 4-6 months for general medical Indication:Former smoker Start:24-Jan-2023 Instruction Type:Provider Instructions for Treatment Patient Instructions Indication:Former smoker Start:24-Jan-2023 Instruction Type:Provider Instructions for Treatment How to Access Health Informa tion Online using Patient Portal and 3rd [employer] Apps Indication:Former smoker Start:24-Jan-2023 Instruction Type:Patient Education [facility]; [facility] Work Phone: 1(564) 612-585409-20-2023 Instructions* Name Dates Details Follow up in 4-6 months for general medical Indication:Former smoker Start:24-Jan-2023 Instruction Type:Provider Instructions for Treatment Patient Instructions Indication:Former smoker Start:24-Jan-2023 Instruction Type:Provider Instructions for Treatment How to Access Health Informa tion Online using Patient Portal and [employer] Apps Indication:Former smoker Start:24-Jan-2023 Instruction Type:Patient Education [facility]; [facility] Work Phone: 1(979) 241-986609-18-2023 Instructions* Name Dates Details Follow up in 4-6 months for general medical Indication:Former smoker Start:24-Jan-2023 Instruction Type:Provider Instructions for Treatment Patient Instructions Indication:Former smoker Start:24-Jan-2023 Instruction Type:Provider Instructions for Treatment How to Access Health Informa tion Online using Patient Portal and [employer] Apps Indication:Former smoker Start:24-Jan-2023 Instruction Type:Patient Education [facility]; [facility] Work Phone: 1(625) 209-463809-13-2023 Instructions* Name Dates Details Follow up in 4-6 months for general medical Indication:Former smoker Start:24-Jan-2023 Instruction Type:Provider Instructions for Treatment Patient Instructions Indication:Former smoker Start:24-Jan-2023 Instruction Type:Provider Instructions for Treatment How to Access Health Informa tion Online using Patient Portal and [employer] Apps Indication:Former smoker Start:24-Jan-2023 Instruction Type:Patient Education [facility]; [facility] Work Phone: 1(592) 774-100509-08-2023 History of Present illness Narrative* Reef Irena Ramos RT(R) - 02/03/2023 1:20 PM EDT Radiology Service Progress Note PATIENT NAME: Paola Castellanos DATE OF SERVICE: February 03, 2023 TIME: 2:53 PM PATIENT IDENTITY VERIFICATION COMPLETED USING TWO (2) IDENTIFIERS: Name and Date of confirmedby patient verbally. FALL SCREENING: Has the patient had 2 falls in the last year or 1 fall with injury or currently using an Ambulatory Assistive Device (Walker, Cane, Wheelchair, Crutches, etc.)? No PATIENT GENDER DATA: Female. status: : No status: NO. PATIENT RELEVANT IMPLANT DATA REVIEWED: Yes RADIOLOGY DEPARTMENT: CT; Exam(s) Completed: Chest PERIPHERAL IV DATA: Not applicable SIGNED BY: RT Lan(R) February 03, 2023 2:53 PM documented in this encounterThe [facility]09-08-2023 Instructions* Name Dates Details Follow up in 4-6 months for general medical Indication:Former smoker Start:24-Jan-2023 Instruction Type:Provider Instructions for Treatment Patient Instructions Indication:Former smoker Start:24-Jan-2023 Instruction Type:Provider Instructions for Treatment How to Access Health Informa tion Online using Patient Portal and 3rd [employer] Apps Indication:Former smoker Start:24-Jan-2023 Instruction Type:Patient Education [facility]; [facility] Work Phone: 1(548) 699-920709-07-2023 Instructions* Name Dates Details Follow up in 4-6 months for general medical Indication:Former smoker Start:24-Jan-2023 Instruction Type:Provider Instructions for Treatment Patient Instructions Indication:Former smoker Start:24-Jan-2023 Instruction Type:Provider Instructions for Treatment How to Access Health Informa tion Online using Patient Portal and [employer] Apps Indication:Former smoker Start:24-Jan-2023 Instruction Type:Patient Education [facility]; [facility] Work Phone: 1(991) 348-488809-01-2023 Instructions* Name Dates Details Follow up in 4-6 months for general medical Indication:Former smoker Start:24-Jan-2023 Instruction Type:Provider Instructions for Treatment Patient Instructions Indication:Former smoker Start:24-Jan-2023 Instruction Type:Provider Instructions for Treatment How to Access Health Informa tion Online using Patient Portal and [employer] Apps Indication:Former smoker Start:24-Jan-2023 Instruction Type:Patient Education [facility]; [facility] Work Phone: Evaluation note* Diagnosis Onset Date Resolution Status CAD (coronary artery disease) chronic History of coronary artery stent placement chronic Hyperlipidemia chronic Palpitations [facility] Work Phone: Evaluation note* Diagnosis Atherosclerosis of [place] coronary artery of [place] heart without angina pectoris- Primary Status post coronary artery stent placement Postsurgical percutaneous transluminal coronary angioplasty status Chest pain, unspecified type documented in this encounter [facility] [place] noteNo assessment information availableBlMadera Community Hospital Work Phone: instructions* Name Dates Details Follow up in 4-6 months for general medical Indication:Former smoker Start:24-Jan-2023 Instruction Type:Provider Instructions for Treatment Patient Instructions Indication:Former smoker Start:24-Jan-2023 Instruction Type:Provider Instructions for Treatment How to Access Health Informa tion Online using Patient Portal and 3rd [employer] Apps Indication:Former smoker Start:24-Jan-2023 Instruction Type:Patient Education [facility]; [facility] Work Phone: instructions* Name Dates Details Patient Instructions Indication:BMI 28.0-28.9,adult (Renamed from Body mass index (BMI) of 28.0 to 28.9 in adult) Start:29-Mar-2023 Instruction Type:Provider Instructions for Treatment How to Access Health Informa tion Online using Patient Portal and 3rd [employer] Apps Indication:BMI 28.0-28.9,adult (Renamed from Body mass index (BMI) of 28.0 to 28.9 in adult) Start:29-Mar-2023 Instruction Type:Patient Education Follow up in 4-6 months for general medical Indication:Former smoker Start:24-Jan-2023 Instruction Type:Provider Instructions for Treatment Patient Instructions Indication:Former smoker Start:24-Jan-2023 Instruction Type:Provider Instructions for Treatment How to Access Health Informa tion Online using Patient Portal and 3rd [employer] Apps Indication:Former smoker Start:24-Jan-2023 Instruction Type:Patient Education [facility]; [facility] Work Phone: instructions* Name Dates Details Patient Instructions Indication:BMI 28.0-28.9,adult (Renamed from Body mass index (BMI) of 28.0 to 28.9 in adult) Start:29-Mar-2023 Instruction Type:Provider Instructions for Treatment How to Access Health Informa tion Online using Patient Portal and 3rd [employer] Apps Indication:BMI 28.0-28.9,adult (Renamed from Body mass index (BMI) of 28.0 to 28.9 in adult) Start:29-Mar-2023 Instruction Type:Patient Education Follow up in 4-6 months for general medical Indication:Former smoker Start:24-Jan-2023 Instruction Type:Provider Instructions for Treatment Patient Instructions Indication:Former smoker Start:24-Jan-2023 Instruction Type:Provider Instructions for Treatment How to Access Health Informa tion Online using Patient Portal and 3rd [employer] Apps Indication:Former smoker Start:24-Jan-2023 Instruction Type:Patient Education [facility]; [facility] Work Phone: reason for referral (narrative)No reason for referral information availableMer[facility] Work Phone: Reason for visit Narrative* MRI/CT (Routine) - Closed Specialty Diagnoses / Procedures Referred By Contac t Referred To Contact RADIO CT SCAN [facility] Diagnoses Right lower quadrant abdominal tenderness Procedures CT ABD/PELV W ORAL/IV CONTRAST CT ABD & PELVIS W/CONTRAST Derek Phillips, PRINTED CIRCUIT DESIGNER [address] [place] [address] Phone: tel: fax:[phone] Cat Scan [address] [place] [address] Phone: tel: fax: Referral ID Status Reason Start Date Expiration Date V isits Requested Visits Authorized [id number] Closed Patient Cleared - Admin/Chairm an/Director advise to proceed or did not respond 07/18/2024 05/28/2025 2 2 [facility] for visit Narrative* Diagnostic Procedure Only (Routine) - Closed Specialty Diagnoses / Procedures Referred By Contac t Referred To Contact Nuclear Medicine / RADIO NUC MED [facility] Diagnoses Atherosclerotic heart disease of [place] coronary artery without angina pectoris Presence of coronary angioplasty implant and graft Chest pain, unspecified chest pain hx PCI in 2019 I25.10 atherosclerotic heart disease of [place] coroary artery without angina 295.5 Preene of coronary angioplasty implant and graft R07.9 Chest pain, unspecified Procedures MYOCARDIAL SPECT MULTIPLE STUDIES INJECTION NM [facility] [place] PA-C [address] [place] [address] [place] [address] Phone: tel: fax: Nuclear Medicine [address] [place] [address] Phone: tel: Referral ID Status Reason Start Date Expiration Date Visits Re quested Visits Authorized [id number] Closed 09/11/2024 05/28/2025 2 2 [facility] Family History No Family History Records FoundUnknown Family Member Name Dates Details Brother 1 Comments:Lung Cancer, AAA Status:Active Maternal Aunt Comments:breast cancer Status:Active Mother Comments:CAD, AAA Status:Active Unknown Family Member Name Dates Details Brother 1 Comments:Lung Cancer, AAA Status:Active Maternal Aunt Comments:breast cancer Status:Active Mother Comments:CAD, AAA Status:Active Unknown Family Member Name Dates Details Brother 1 Comments:Lung Cancer, AAA Status:Active Maternal Aunt Comments:breast cancer Status:Active Mother Comments:CAD, AAA Status:Active Unknown Family Member Name Dates Details Brother 1 Comments:Lung Cancer, AAA Status:Active Maternal Aunt Comments:breast cancer Status:Active Mother Comments:CAD, AAA Status:Active Unknown Family Member Name Dates Details Brother 1 Comments:Lung Cancer, AAA Status:Active Maternal Aunt Comments:breast cancer Status:Active Mother Comments:CAD, AAA Status:Active Relationship Condition Age at Onset Recorded Date/T chris brother Malignant neoplasm Unknown Abdominal aortic aneurysm (AAA) Unknown mother Abdominal aortic aneurysm (AAA) Unknown Coronary artery disease Unknown aunt Malignant neoplasm of breast Unknown Unknown Family Member Name Dates Details Brother 1 Comments:Lung Cancer, AAA Status:Active Maternal Aunt Comments:breast cancer Status:Active Mother Comments:CAD, AAA Status:Active Unknown Family Member Name Dates Details Brother 1 Comments:Lung Cancer, AAA Status:Active Maternal Aunt Comments:breast cancer Status:Active Mother Comments:CAD, AAA Status:Active Relationship Condition Age at Onset Recorded Date/T chris brother Malignant neoplasm Unknown Abdominal aortic aneurysm (AAA) Unknown Asthma Unknown mother Abdominal aortic aneurysm (AAA) Unknown Coronary artery disease Unknown Hypertension Unknown aunt Malignant neoplasm of breast Unknown father Cardiac disease Unknown Chief Complaint and Reason for Visit Chief Complaint CAD / EST (JATINDER) E-ORDER Reason for Visit CAD (coronary artery disease) History of coronary artery stent placement Hyperlipidemia Palpitations Chief Complaint CAD / EST (JATINDER) E-ORDER 30 DAY MONITOR PALPITATIONS PALPITATIONS Amb Documentation Reason for Visit CAD (coronary artery disease) History of coronary artery stent placement Hyperlipidemia Palpitations Chief Complaint Admit Date UPDATE H&P AND MRSA SWAB January 20 9:37am Reason for Visit Admit Date 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 Angie Egan MD Attending Provider Active Derek Phillips [employer]ER[employer]C Primary Care Provider, Referring Provider Active Team Status: Inactive Member Role Status Dates Derek Phillips [employer]ER[employer]-C Primary Care Provider Active Dr. Angie Egan MD Attending Provider, Referring Pr ovider Active Team Status: Active Member Role Status Dates Derek Phillips [employer]ER[employer]-C Primary Care Provider Active Dr. Angie Egan MD Attending Provider Active Team Status: Active Member Role Status Dates Derek Phillips , COMMERCIAL [employer]C Primary Care Provider Active Joss Tijerina NP, COMMERCIAL FISHER-C Attending Provider Active Team Status: Active Member Role Status Dates Derek Phillips [employer]ER[employer]-C Primary Care Provider Active Dr. Angie Egan MD Attending Provider, Referring Pr ovider Active Team Status: Active Member Role/Relationship Status Dates Derek Phillips , COMMERCIAL [employer]ER-C Primary Care Provider Active Team Status: Inactive Member Role/Relationship Status Dates Derek Phillips COMMERCIAL [employer]ER-C Primary Care Provider Active Start: January 20, 2025 End: January 20, 2025 Derek Phillips COMMERCIAL [employer]ER-C Referring Provider Active Start: January 20, 2025 End: January 20, 2025 Dr. Adolfo Melo MD Attending Provider Active Start: January 20, 2025 End: January 20, 2025 Team Status: Active Member Role/Relationship Status Dates Derek Phillips COMMERCIAL [employer]ER-C Primary Care Provider Active Start: January 20, 2025 Dr. Adolfo Melo MD Attending Provider Active Start: January 20, 2025 Team Status: Inactive Member Role/Relationship Status Dates Derek Phillips COMMERCIAL [employer]ER-C Primary Care Provider Active Start: January 20, 2025 End: January 20, 2025 Dr. Adolfo Melo MD Attending Provider Active Start: January 20, 2025 End: January 20, 2025 Goals (unrecognized section and content) Goals may be documented in a n alternate sectionGoals may be documented in an alternate sectionGoals may be documented in an alternate sectionGoals may be documented in an alternate section Source Comments (unrecognize d section and content) In the event this informatio n is protected by the Federal Confidentiality of Alcohol and Drug Abuse Patient Records regulations: The Federal rules restrict any use of the information to criminally investigate or prosecute any alcohol or drug abuse patient.[facility] the event this information is protected by the Federal Confidentiality of Alcohol and Drug Abuse Patient Records regulations: The Federal rules restrict any use of the information to criminally investigate or prosecute any alcohol or drug abuse patient.[facility] HospitalIn the event this information is protected by the Federal Confidentiality of Alcohol and Drug Abuse Patient Records regulations: The Federal rules restrict any use of the information to criminally investigate or prosecute any alcohol or drug abuse patient.[facility] HospitalIn the event this information is protected by the Federal Confidentiality of Alcohol and Drug Abuse Patient Records regulations: The Federal rules restrict any use of the information to criminally investigate or prosecute any alcohol or drug abuse patient.[facility] HospitalIn the event this information is protected by the Federal Confidentiality of Alcohol and Drug Abuse Patient Records regulations: The Federal rules restrict any use of the information to criminally investigate or prosecute any alcohol or drug abuse patient.[facility] HospitalIn the event this information is protected by the Federal Confidentiality of Alcohol and Drug Abuse Patient Records regulations: The Federal rules restrict any use of the information to criminally investigate or prosecute any alcohol or drug abuse patient.[facility] the event this information is protected by the Federal Confidentiality of Alcohol and Drug Abuse Patient Records regulations: The Federal rules restrict any use of the information to criminally investigate or prosecute any alcohol or drug abuse patient.[facility]In the event this information is protected by the Federal Confidentiality of Alcohol and Drug Abuse Patient Records regulations: The Federal rules restrict any use of the information to criminally investigate or prosecute any alcohol or drug abuse patient.[facility] the event this information is protected by the Federal Confidentiality of Alcohol and Drug Abuse Patient Records regulations: The Federal rules restrict any use of the information to criminally investigate or prosecute any alcohol or drug abuse patient.[facility] the event this information is protected by the Federal Confidentiality of Alcohol and Drug Abuse Patient Records regulations: The Federal rules restrict any use of the information to criminally investigate or prosecute any alcohol or drug abuse patient.[facility]In the event this information is protected by the Federal Confidentiality of Alcohol and Drug Abuse Patient Records regulations: The Federal rules restrict any use of the information to criminally investigate or prosecute any alcohol or drug abuse patient.[facility]In the event this information is protected by the Federal Confidentiality of Alcohol and Drug Abuse Patient Records regulations: The Federal rules restrict any use of the information to criminally investigate or prosecute any alcohol or drug abuse patient.[facility] HospitalIn the event this information is protected by the Federal Confidentiality of Alcohol and Drug Abuse Patient Records regulations: The Federal rules restrict any use of the information to criminally investigate or prosecute any alcohol or drug abuse patient.[facility] Reason for Visit (unrecogniz ed section and content) Reason Comments Radiology CT Specialty Diagnoses / Procedures Referred By Contac t Referred To Contact RADIO CT SCAN [facility] Diagnoses Right lower quadrant abdominal tenderness Procedures CT ABD/PELV W ORAL/IV CONTRAST CT ABD & PELVIS W/CONTRAST Derek Phillips, SIMON [address] [facility] [address] [place] [address] Phone: tel: fax: Cat Scan [address] [place] [address] Phone: tel: fax: Referral ID Status Reason Start Date Expiration Date V isits Requested Visits Authorized [id number] Closed Patient Cleared - Admin/Chairm an/Director advise to proceed or did not respond 07/18/2024 05/28/2025 2 2 Specialty Diagnoses / Procedures Referred By Contac t Referred To Contact Radiology / RADIO CT SCAN [facility] Diagnoses Multiple nodules of lung CT Chest w/o contrast, CPT 40348, bringing order with her, Kimberly Phillips Procedures CT WO CH 400 Derek Phillips, PRINTED CIRCUIT DESIGNER [address] [place] [address] [facility] [address] [place] [address] Referral ID Status Reason Start Date Expiration Date Visits Re quested Visits Authorized [id number] Closed 02/03/2023 03/05/2023 1 1 Specialty Diagnoses / Procedures Referred By Contac t Referred To Contact Radiology / RADIO CT SCAN [facility] Diagnoses Other nonspecific abnormal finding of lung field Procedures DIAGNOSTIC COMPUTED TOMOGRAPHY THORAX W/O CNTRST CT WO CH 400 Jatinder, Derek, PRINTED CIRCUIT DESIGNER [address] [facility] [address] [place] [address] Scan [facility] [address] [place] [address] Referral ID Status Reason Start Date Expiration Date Visits Re quested Visits Authorized [id number] Closed 12/18/2023 02/16/2024 1 1 Reason Comments Radiology [place] Specialty Diagnoses / Procedures Referred By Contac t Referred To Contact Nuclear Medicine / RADIO NUC MED [facility] Diagnoses Atherosclerotic heart disease of [place] coronary artery without angina pectoris Presence of coronary angioplasty implant and graft Chest pain, unspecified chest pain hx PCI in 2019 I25.10 atherosclerotic heart disease of [place] coroary artery without angina 295.5 Preene of coronary angioplasty implant and graft R07.9 Chest pain, unspecified Procedures MYOCARDIAL SPECT MULTIPLE STUDIES INJECTION NM [facility] [place] PA-C [address] [place] [address] Phone: tel: fax:[phone] Nuclear Medicine [address] [place] [address] Phone: tel: Referral ID Status Reason Start Date Expiration Date Visits Re quested Visits Authorized [id number] Closed 09/11/2024 05/28/2025 2 2 INFORMATION SOURCE (unrecogn ized section and content) DATE CREATED AUTHOR 10/03/2024 [facility] DATE CREATED AUTHOR 'S IDANIA ATION 02/02/2025 [facility] FOR RECORDS PERTAINING TO PATIENTS WHO ARE OR HAVE BEEN ENROLLED IN A CHEMICAL DEPENDENCY/SUBSTANCEABUSE PROGRAM, SOME INFORMATION MAY BE OMITTED. This clinical summary was aggregated from multiple sources. Caution should be exercised in using it in the provision of clinical care. This summary normalizes information from multiple sources, and as a consequence, information in this document may materially change the coding, format and clinical context of patient data. In addition, data may be omitted in some cases. CLINICAL DECISIONS SHOULD BE BASED ON THE PRIMARY CLINICAL RECORDS. [facility]. provides no warranty or guarantee of the accuracy or completeness of information in this document.
[2025-02-03] MEDS: Lactated Ringers 1,000 ML 15 ML IV (07:05)
--- NOTE | 2025-02-03 07:05 | HP.PCM_ITS ---
History and Physical Date of Admission: 02/03/25 Date of Service: 01/20/25 MR#: [id number] Acct: [id number] Name: MIKE ANDERSON Rep #: [id number] : 1950 Provider: Dr. Adolfo Melo MD Age/Sex: 74/F Location: [facility] Status: Signed Intake Vital Signs 09/06/2508:56 01/20/2510:01 Height 5 ft 5 in 5 ft 5 in Weight: 170 lb 172 lb BMI 28.3 28.6 BP 129/74 H 124/67 H Blood Pressure Location Lt brachial Rt brachial Position Sitting Sitting Respiration 17 17 Pulse 55 L 53 L Pulse Source Monitor Monitor Pulse Oximetry (%) 100 99 Oxygen Delivery Method room air room air Intake Visit Reasons: UPDATE H&P AND MRSA SWAB Chief Complaint: update H&P and MRSA Swab Is patient in pain?: No Allergies adhesive tape (tape) Allergy (Intermediate, Verified 01/20/25 13:05) Rashlatex Allergy (Intermediate, Verified 01/20/25 13:05) Rash Medications ?Medication ?Instructions ?Recorded ?Confirmed ?Type amoxicillin 500 mg capsule 2,000 mg PO ONCE PRN dental 02/13/23 History procedures ascorbic acid (vitamin C) 500 mg 500 mg PO DAILY 02/13/23 01/20/25 Histor y capsule,extended release aspirin 81 mg tablet,delayed 81 mg PO DAILY 02/13/23 01/20/25 History release atorvastatin 40 mg tablet 40 mg PO QHS 02/13/23 01/20/25 History calcium carbonate (Calcium 600) 600 mg PO BID 02/13/23 01/20/25 History cholecalciferol (vitamin D3) 50 50 mcg PO DAILY 02/13/23 01/20/25 Histor y mcg (2,000 unit) capsule citalopram 20 mg tablet 20 mg PO DAILY 02/13/23 01/20/25 History collagen,hydrolysate 500 mg-biotin 1 cap PO DAILY 02/13/23 01/20/25 History 800 mcg-ascorbic acid 50 mg capsule (Collagen 1500 Plus C) famotidine 20 mg tablet 20 mg PO BID 02/13/23 01/20/25 History gabapentin 100 mg capsule 200 mg PO BID 02/13/23 01/20/25 History inulin 2 gram chewable tablet 2 g PO DAILY 02/13/23 01/20/25 History (Prebiotic Fiber) lactobacillus combination no.4 3 3,000 mmu cells PO .3x/wk 02/13/2301/20 History billion cell capsule (Probiotic) multivitamin 1 tab PO DAILY 02/13/23 01/20/25 History omega 7-ymn-cqd-fish oil 300 1 cap PO DAILY 02/13/23 01/20/25 History mg-1,000 mg capsule,delayed release (Fish Oil) sour puentes extract 1,000 mg 3,000 mg PO DAILY 02/13/23 01/20/25 Hist ory capsule (Tart Puentse Extract) timolol maleate 0.5 % eye drops 1 drp ophthalmic (eye) BID 02/13/2312/28 History zinc acetate 50 mg (zinc) capsule 50 mg PO DAILY 02/13/23 01/20/25 History losartan 50 mg tablet 25 mg PO DAILY 08/16/24 01/20/25 History cyanocobalamin (vitamin B-12) 1,000 mcg PO DAILY 01/20/25 01/20/25 His tory 1,000 mcg tablet (Vitamin B-12) Have you fallen in the past year?: No PFSH Medical History BMI 28.0-28.9,adult Elevated fasting glucose Chronic neck pain Glaucoma Former smoker GERD (gastroesophageal reflux disease) Vitamin D deficiency Pulmonary nodule CAD (coronary artery disease) Hyperlipidemia Cervical spondylosis Essential hypertension Depression Fallen bladder IBS (irritable bowel syndrome) Surgical History History of coronary artery stent placement Hx of hammer toe correction (~2008) Hx of dilation and curettage (~1972) Hx of cholecystectomy (~2006) Hx of bilateral cataract extraction Hx of total knee replacement (~2007) Hx of total hysterectomy Hx of varicose vein stripping (~2018) History of right shoulder replacement Family History (Updated 09/06/24 @ 09:56 by Carissa Arango) Brother Cancer lung AAA (abdominal aortic aneurysm) AsthmaMother AAA (abdominal aortic aneurysm) CAD (coronary artery disease) HypertensionAunt Breast cancerFather Heart disease Social History Smoking Status: Former smoker how long ago did patient quit smokin caffeine: Yes (3-4 cups 1/2 caf daily) HPI HPI HPI: Patient last seen 09/06/2024. She presents today for updated H&P as may prepare for operative repair of a right spigelian hernia. She shares that she has done reasonably well since her consultation visit, however she admits that she has had a couple of spells. By this she states that she has experienced her right lower quadrant hurting pretty good. She shares that simply by laying down and massaging the area both the noted pain and associated bulge remit. She generally notes that her bowel activity has been status quo (she notes a history of IBS) but yesterday she did have a particularly loose stool. She previously was taking fiber but ran out of this medication. She specifically denies any recent heart or lung troubles. She confirms her activity level remains good. Below is recapitulated from patient's consultation visit for ease of review: Patient is a 74-year old female who presents for evaluation of a right spigelian hernia. This finding was first noticed by patient approximately 7 years ago in 2018. She states at that time she was living in [place] and asked to a surgeon to perform a colonoscopy as she was concerned this was the cause of her abdominal discomfort. He initially declined since patient had just had a prior scope 3 years earlier. Instead he obtained an x-ray that was not conclusive. She ultimately did go on to repeat her colonoscopy and this was unremarkable. Thereafter she states she raised this concern with multiple healthcare providers but found these concerns dismissed after sharing her evaluation by surgery. Fortunately patient did undergo CT imaging after raising this issue while establishing care in [place]. CT imaging performed 07/23/2024 was read by radiology as displaying a right lower quadrant spigelian hernia containing small bowel without obstruction. Patient has not able to recall how this occurred. Other symptoms include: Some increased pain when she goes more than a couple days without a bowel movement. She states at this time she must lie flat and then work to rub the bowel back into her abdominal cavity. Patient has a remote personal history of smoking. Patient has no personal history of recurrent cutaneous infections including staph. Pertinent surgical history includes: Laparoscopic cholecystectomy and laparoscopic hysterectomy ROS General General: No weight change, appetite, fatigue, colon cancer, breast cancer or weakness HEENT HEENT: No difficulty swallowing, eye injury, eye surgery, swollen glands or hoarseness Endo Endocrine: No thyroid disease, diabetes mellitus, thyroid cancer, Hair loss, heat intolerance or cold intolerance Skin Skin: No rash or changing moles Musc Musculoskeletal: Yes back problems and arthritis; No rheumatoid arthritis, gout or joint pain Cardio Cardiovascular: Yes heart disease, high blood pressure and heart stent; No murmur, pacemaker, atrial fibrillation, heart attack, palpitations, shortness of breath with exertion or chest pain Psych Psychiatric: No depression, anxiety or hearing voices Resp Respiratory: No shortness of breath, No sleep apnea, No cough, No COPD, No asthma, No emphysema and No wheezing Gastro Gastrointestinal: Yes abdominal pain, No nausea or vomiting, No diarrhea, No constipation, No blood in stool, Yes acid reflux, Yes hemorrhoids, No ulcers, No gallbladder problem and No black,tarry stools Magdiel Hematologic: No blood thinners, No blood disorders, No bleeding, No anemia and No blood clots Neuro Neurologic: No system reviewed and no additional complaints, except as documented, No as per HPI, No abnormal gait, No abnormal hearing, No abnormal movements, No abnormal speech, No behavioral changes, No burning sensations, No confusion, No convulsions, No disequilibrium, No dizziness, No localized weakness, No frequent falls, No headache(s), No lack of coordination, No loss of vision, No memory loss, Yes numbness, No other visual disturbances, No radicular pain, No restless legs, No sensory deficit, No syncope, Yes tingling, No tremor(s), No weakness and No other Exam Const General: cooperative and no acute distress Orientation: alert, awake and oriented x3 Resp Effort & Inspection: normal respiratory effort GI Other: Nondistended, well-healed port sites across upper abdomen, subtly palpable right lower quadrant hernia with associated tenderness Assessment and Plan Assessment and Plan (1) Spigelian hernia: Status: Chronic Comment: Patient 74-year-old female who makes for surgical consultation related 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 Patient does describe progressive pain complaints with this hernia and recent CT imaging demonstrates the hernia to periodically contain bowel. Furthermore, patient does appear to have some negative effect to her bowel with increased pain around times of constipation. Given the size of the hernia and patient's symptoms as well as her otherwise appearance of appropriate candidacy for surgery, I do recommend proceeding for hernia repair. I described a robot-assisted transabdominal preperitoneal spigelian hernia closure with mesh placement. Patient had a number of questions related to development of scar tissue postoperatively. I then went on to describe expected postoperative recovery. I suggested that patient would need to refrain from any exertional activity for a period of 4 to 5 weeks postoperatively. To this patient states that she has travel plans beginning September through December but wishes to undergo operative repair when she arrives home. Since patient has gone at least 7 years with this hernia and no complications to date I believe this is reasonable. Update 01/20/2025: Patient arrives for updated H&P. She denies any interval health changes. She does continue to have symptoms from her right spigelian hernia. This is stable in size and otherwise on exam. She has a number of questions today related to her procedure which were answered individually. She confirms satisfaction with these answers. I have provided an overview of our intended procedure-transabdominal preperitoneal repair of her right spigelian hernia. She confirms familiarity with robotics procedures as she has previously undergone robotic assisted cholecystectomy and hysterectomy. Lastly a MRSA swab was obtained of her nares to evaluate for any need for preoperative eradication. Plan: ? Review results of MRSA swabbing ? Planning for robot-assisted repair of right spigelian hernia with mesh placement 02/03/2025. Anticipate outpatient disposition. Orders: I have examined the patient and the H&P has been reviewed. There are no clinical changes since date of exam. Patient remains in constant state of health. Abdominal exam was benign. Consents were confirmed. Post procedure activity restrictions were reviewed. Patient and her daughter have had all questions answered to their satisfaction. Will now proceed to the operating room for robotic assisted repair of right spigelian hernia with mesh placement.
--- NOTE | 2025-02-03 07:10 | PCM.PRE.AN2 ---
ASA Classification* ASA Classification ASA Classification: 2 Assessment & Plan Anesthesia* Anesthesia Assessment Anesthesia Assessment: Discussed sedation and/or anesthesia options, risks, benefits, and alternatives with patient/parents/legal guardian/POA. Questions invited. The patient/parents/legal guardian/POA seems to understand and agrees to proceed with anesthesia plan. Reviewed the physical assessment, medical history, allergy history and patient home medications list prior to surgery/procedure/anesthetic and documented any changes. Performed airway and anesthesia risk assessments. Anesthesia Type Anesthesia Type: General History Source History Obtained from:: Patient and Chart Anesthesia Focused Assessment* Temperature: 97.2 F Pulse Rate: 56 Blood Pressure: 148/66 Respiratory Rate: 18 Pulse Ox: 100 Oxygen Delivery Method: Room Air Airway Assessment Mouth opens: >3 cm Mallampati Score: II Teeth Condition: Caps/Crowns Neck Range of motion (ROM): Full ROM Labs Anesthesia Preop lab: CBC WBC 5.3 K/mm3 (4.4-11.0) 01/21/25 12:50 01/21/25 RBC 4.03 M/mm3 (4.2-5.4) L 01/21/25 12:50 01/21/25 Hgb 13.0 g/dL (12.0-15.0) 01/21/25 12:50 01/21/25 Hct 38.9 % (37-47) 01/21/25 12:50 01/21/25 Plt Count 157 K/mm3 (150-450) 01/21/25 12:50 01/21/25 CHEMISTRY Potassium 4.6 mmol/L (3.3-5.1) 01/21/25 12:50 01/21/25 Sodium 140 mmol/L (133-145) 01/21/25 12:50 01/21/25 BUN 18 mg/dL (4-19) 01/21/25 12:50 01/21/25 Creatinine 0.90 mg/dL (0.70-1.20) 01/21/25 12:50 01/21/25 Glucose 97 mg/dL (70-99) 01/21/25 12:50 01/21/25 TSH 2.61 uIU/mL (0.358-3.74) 02/15/23 12:04 02/15/23 COAG Pre-Assessment Diagnosis/Proposed Procedure Planned Operative Procedure(s): (R) Lap Robotic Spigelian Hernia w/mesh Anesthesia History 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 When Was Last Pacemaker Check QUESTION #4 FULL TEXT: You/Your Family Experience fever (hyperthermia) with Anesthesia Last Oral Intake Last Oral intake: Last Oral Intake NPO since 22:00 02/03/25 06:37 Meds taken in AM with sips of Yes 02/03/25 06:37 water? Meds patient instructed to losartan, gabapentin, 02/03/25 06:37 take am of surgery famotidine PONV PONV - telescope repairer: PONV - telescope repairer Female Yes 01/20/25 13:28 HX of Motion Sickness No 01/20/25 13:28 HX of N/V After Surgery No 01/20/25 13:28 Non-Smoker Yes 01/20/25 13:28 Duration of Surgery greater Yes 01/20/25 13:28 than 60 minutes Number of Risk Factors 3 01/20/25 13:28 PONV Score Moderate Risk 01/20/25 13:28 Height & Weight Height & Weight: Anesthesia: Height & Weight Height 5 ft 5 in 02/03/25 06:37 Weight: 77 kg 02/03/25 06:37 Body Mass Index (BMI) 28.2 02/03/25 06:37 Respiratory Assessment Respiratory Assessment - telescope repairer: Respiratory Tract Infection Hx - telescope repairer Hx Respiratory Tract Infection No 01/20/25 13:28 STOP Sleep Apnea STOP Sleep Apnea - telescope repairer: STOP Sleep Apnea - telescope repairer Hx Hypertension Yes: CONTROLLED ON MED 01/20/25 13:28 Hx Sleep Apnea No 01/20/25 13:28 CPAP BIPAP Do you snore loudly (louder No 01/20/25 13:28 than talking or can be heard Do you often feel tired/ No 01/20/25 13:28 fatigued/ sleepy during daytime? Has anyone observed you stop No 01/20/25 13:28 breathing during sleep? STOP Results Negative 01/20/25 13:28 QUESTION #5 FULL TEXT : Do you snore loudly (louder than talking or can be heard through closed doors)? Tobacco Use History Tobacco Use History - telescope repairer: Tobacco Use History - telescope repairer Tobacco Use Smoking Status Former smoker 01/20/25 13:28 Hx Tobacco Use No 01/20/25 13:28 Years Smoking Packs Smoked per Day Smoking Cessation Date was No - quit smoking greater 01/20/25 13:28 within the last 15 years than 15 years ago Hx Smoking Cessation Date Hx Smoking Cessation Counseling Hematologic Medial History Hematologic Hx - telescope repairer: Hematologic Medical Hx - hand hardener Hx of Blood Transfusion No 01/20/25 13:28 Hx of Transfusion in last 3 No 01/20/25 13:28 Months Date of Last Transfusion (if within last 3 months) Ever experience any problems No 01/20/25 13:28 with transfusion(s)? Specify any problems Hx of Preganancy in last 3 No 01/20/25 13:28 Months Nurse Filling Out Transfusion VCHRISTIN 01/20/25 13:28 & Questions: Date: 01/20/25 01/20/25 13:28 Time: 13:29 01/20/25 13:28 Patient unable to answer at this time (ie. confused, unrespo /Reproduction History /Reproductive History - telescope repairer: /Reproductive Hx- telescope repairer Hx Now No 01/20/25 13:28 Gestational Age (in weeks): EDC: Hx Hx Para Hx Section SAB No 01/20/25 13:28 Active Medications Active Medications: Current Medications Generic Name Dose Route Start Last Admin Trade Name Freq PRN Reason Stop Dose Admin Cefazolin Sodium 2 gm/ Sodium 110 mls @ 200 mls/hr 02/03/25 07:30 Chloride IV 02/03/25 08:02 INTRAOP ONE Lactated Ringer's 1,000 mls @ 15 mls/hr 02/03/25 06:15 02/03/25 07:05 IV 15 mls/hr .Q48H NEAL Administration PFSH Medical History Wears glasses Post-menopausal Cancer Arthritis High cholesterol Back pain History of IBS Gastric reflux Shortness of breath on exertion History of edema Normal Holter exam History of echocardiogram History of stress test Cardiology follow-up encounter Hx of squamous cell carcinoma History of basal cell cancer BMI 28.0-28.9,adult Elevated fasting glucose Chronic neck pain Glaucoma Former smoker GERD (gastroesophageal reflux disease) Vitamin D deficiency Pulmonary nodule CAD (coronary artery disease) Hyperlipidemia Cervical spondylosis Essential hypertension Depression Fallen bladder IBS (irritable bowel syndrome) Home Medications ?Medication ?Instructions ?Recorded ?Last Taken ?Type amoxicillin 500 mg capsule 2,000 mg PO ONCE PRN dental 02/13/23 Unknown History procedures ascorbic acid (vitamin C) 500 mg 500 mg PO DAILY 02/13/23 02/02/25 History capsule,extended release aspirin 81 mg tablet,delayed 81 mg PO DAILY 02/13/23 01/26/25 History release atorvastatin 40 mg tablet 40 mg PO QHS 02/13/23 02/02/25 History calcium carbonate (Calcium 600) 600 mg PO BID 02/13/23 02/02/25 History cholecalciferol (vitamin D3) 50 50 mcg PO DAILY 02/13/23 02/02/25 History mcg (2,000 unit) capsule citalopram 20 mg tablet 20 mg PO DAILY 02/13/23 02/02/25 History collagen,hydrolysate 500 mg-biotin 1 cap PO DAILY 02/13/23 02/02/25 History 800 mcg-ascorbic acid 50 mg capsule (Collagen 1500 Plus C) famotidine 20 mg tablet 20 mg PO BID 02/13/23 02/03/25 History gabapentin 100 mg capsule 200 mg PO BID 02/13/23 02/03/25 History lactobacillus combination no.4 3 3,000 mmu cells PO .3x/wk 02/13/23 02/02/25 History billion cell capsule (Probiotic) multivitamin 1 tab PO DAILY 02/13/23 02/02/25 History omega 7-jsb-use-fish oil 300 1 cap PO DAILY 02/13/23 01/26/25 History mg-1,000 mg capsule,delayed release (Fish Oil) sour puentes extract 1,000 mg 3,000 mg PO DAILY 02/13/23 02/02/25 History capsule (Tart Puentes Extract) timolol maleate 0.5 % eye drops 1 drp ophthalmic (eye) BID 02/13/23 02/02/25 History zinc acetate 50 mg (zinc) capsule 50 mg PO DAILY 02/13/23 02/02/25 History losartan 50 mg tablet 25 mg PO DAILY 08/16/24 02/03/25 History cyanocobalamin (vitamin B-12) 1,000 mcg PO DAILY 01/20/25 02/02/25 History 1,000 mcg tablet (Vitamin B-12) Allergy/AdvReac Type Severity Reaction Status Date / Time adhesive tape (tape) Allergy Intermediate Rash Verified 02/03/25 06:29 latex Allergy Intermediate Rash Verified 02/03/25 06:29 Family History Brother Cancer lung AAA (abdominal aortic aneurysm) Asthma Mother AAA (abdominal aortic aneurysm) CAD (coronary artery disease) Hypertension Aunt Breast cancer Father Heart disease Surgical History History of cardiac catheterization Hx of breast biopsy Hx of bladder repair surgery Hx of colonoscopy History of lumpectomy of left breast History of coronary artery stent placement Hx of hammer toe correction (~2008) Hx of dilation and curettage (~1972) Hx of cholecystectomy (~2006) Hx of bilateral cataract extraction Hx of total knee replacement (~2007) Hx of total hysterectomy Hx of varicose vein stripping (~2018) History of right shoulder replacement Social History Smoking Status: Former smoker how long ago did patient quit smokin caffeine: Yes (3-4 cups 1/2 caf daily) Review of Systems (Anesthesia) ROS Narrative System reviewed and no additional complaints, except as documented.
[2025-02-03] MEDS: Cefazolin 1 GM/5 ML Vial 2 GM IV (07:27)
[2025-02-03] MEDS: Lidocaine 1% (5 ml sdv) 5 ML Vial IV (07:34)
[2025-02-03] MEDS: fentaNYL 100 MCG/2 ML Ampul 50 MCG IV (07:34)
--- NOTE | 2025-02-03 10:34 | PCM.OPRPT ---
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 Surgery/Procedure Performed: Robot assisted bilateral spigelian hernia repair with mesh precision lens technician: Yes Technology Lead: Griselda Haas Tasks completed by airline pilot/first officer: Opening & closing Type of Anesthesia: General/Supplemental RN Documented Start/Stop Times: Operation Date: 02/03/25 07:30 Case Time Into Pre-Op 02/03/25 06:10 Out of Pre-Op 02/03/25 07:21 Anesthesia Start 02/03/25 07:26 Into Room 02/03/25 07:26 Procedure Start 02/03/25 08:05 Procedure End 02/03/25 10:43 Anesthesia End 02/03/25 10:49 Out of Room 02/03/25 10:49 Into Recovery 02/03/25 10:51 Into Phase II Recovery 02/03/25 12:18 Out of Recovery 02/03/25 12:18 Out of Phase II 02/03/25 16:06 Procedure Start Time: 08:05 Procedure Stop Time: 10:43 Select all DRAINS/GRAFTS/IMPLANTS that apply: Implanted device (ProGrip mesh 10 x 15 cut to 10 x 10) Implanted device details: LOT [id number] reference [id number] (Right), lot [id number], reference LP [id number] Estimated Blood Loss: 20 Specimen collected: No Description of surgery: - right greater than left spigelian hernia both containing fat - 30mL mixture 10mL exparel, 10mL injectable saline, 20mL marcaine Surgical Findings: After appropriate identification in the preoperative holding area the patient was brought to the operating room where she was positioned supine on the operating table. Preoperative antibiotics were completed and the patient was administered a general anesthetic. Patient's abdomen was then prepped and draped in usual sterile fashion. Formal timeout followed to confirm patient and procedure. Procedure was begun with an optical entry facilitated by Veress insufflation at Hernandez's point. Once pneumoperitoneum reached a set point pressure of 15 mmHg a 8 mm robotic trocar was placed with a careful Optiview technique. Follow-up laparoscopic investigation revealed no inadvertent injury to the viscera below. A second port was placed in the right upper quadrant followed by a third port through the epigastrium?both under laparoscopic visualization. The robot was docked in standard fashion. In this positioning I could visualize the patient's known right spigelian defect, however, a similar?appearing defect was present on the left side. At this point I resolved to complete docking and then break scrub to talk to patient's family about proceeding with bilateral repair. After confirming the operative crew was prepared, I broke scrub and spoke to the patient's daughter who confirmed her interest in proceeding with the additional hernia on the left side. I then returned to the operating room where I assumed the robotic console. Robotically, a peritoneal flap was created on the right, entering into the lateral visceral compartment, extending from the medial umbilical ligament laterally and approximately 6 cm proximal to the visualized abdominal wall defect. This flap was extended inferiorly until I came down over the hernia sac. Perforating vessels were addressed with monopolar and bipolar energy from the robot depending on the vessel size to minimize the risk for bleeding in the pocket. Gentle traction was applied to the hernia sac as I used the robotic scissors to sweep upward and ultimately reduce the hernia back to the peritoneum. A significant amount of subcutaneous tissue was reduced with the hernia sac. Upon reduction there were several dense adhesions inferiorly approaching the proximal portion of right inferior epigastric vessels so great care was taken to thin these adhesions and divided them with bursts of monopolar energy. Ultimately I was able to extend my dissection approximately 2 cm inferior and inferior to the level of Peter's ligament over the pubic bone. I used a ruler to confirm adequate dissection within the pocket and then obtained a 1 STRATAFIX suture to close the abdominal wall defect. Small bites of the overlying external oblique were taken to try to obliterate the space. I then placed a ProGrip mesh (originally 10 x 15 cm) cut to 10 x 10 cm into the pocket and pressed this in the place overlying the hernia defect. 3 point fixation was used with interrupted 3-0 Vicryl to prevent translation of the mesh. Attention was then turned to the left side where again, robotically, a preperitoneal flap was created in similar fashion to what had been done on the right side. Once again, dissection was carried down to the hernia sac inferiorly where traction was placed on the hernia sac and with gentle countertraction I was able to fully reduce the hernia sac using bursts of monopolar energy to disrupt adhesions. There is a small amount of bleeding from a branch off the inferior epigastric vein on the left and bipolar energy was used to obtain hemostasis. The small amount of clot was blotted with the introduction of a Ray-David gauze. I then extended my dissection inferiorly until I was inferior to the level of Peter's ligament. Again, a ruler was used to confirm adequate dissection of this peritoneal pocket. Another 10 x 15 ProGrip mesh was cut to 10 x 10 cm and introduced the peritoneal cavity. This mesh was placed within the preperitoneal pocket and pressed into place. Again, 3-point fixation with interrupted 3-0 Vicryl's was used to secure the mesh in place. Both peritoneal flaps were then closed using 3-0 V-Loc suture. The hernia sacs were hung in front of the peritoneal closure as the closure proceeded. At the conclusion of the peritoneal flap closure needles, ruler, and Ray-David were extracted. All counts were correct. With pneumoperitoneum I performed a block of the iliohypogastric nerves using 5 mL of our local anesthetic Exparel cocktail under laparoscopic visualization just medial to the notch of the anterior superior iliac spine. Then pneumoperitoneum was released and the port sites were closed with 4-0 Monocryl suture. Steri-Strips and OpSite Telfa dressings were placed over each port site. Patient was then awoken from anesthetic and transferred to PACU for ongoing recovery. Complications Complications: No Admit VTE Documentation VTE Mechan Device Prophylaxis: SCD's
[2025-02-03] MEDS: 0.9% Normal Saline (Pres. free 10 ML Vial (10:40)
[2025-02-03] MEDS: BUPIVACAINE LIPOSOME/PF 20 ML VIAL OPERA.SITE (10:40)
--- NOTE | 2025-02-03 10:46 | EX.PCM.DISCH ---
Discharge Instructions Diet Discharge Diet: No restrictions Activity Discharge Activity: May Not Drive (While taking narcotic pain medication) and May Shower May shower in (days): 2 Ice area for (Minutes): 20 Lifting Restrictions: No lifting greater than 10 pounds for the next 5 weeks Dressing / Incision Call your doctor if your incision/area has: Continuous Slow Oozing, Increased Pain/ Swelling, Increased Redness, Foul Smelling Discharge and Swelling at the incision site Call your doctor if you observe: Fever of 101 or Higher, Inability to urinate and Inability to have a bowel movement Change Dressing in: 2 days (Please leave Steri-Strips intact until they fall off spontaneously or are taken off at your follow-up visit) Remove Dressing in: 2 days Cleanse incision/area with: Soap & Water and Keep Dressing Clean & Dry Follow Up Care Please Follow Up With: Adolfo Melo MD When: 10-14 days postop Test Results: Test results from this visit will be discussed in further detail at your follow-up appointment, if applicable. Discharge Plan Admission Primary Reason for Your Visit: Hernia repairs Attending Provider: Adolfo Melo Primary Care Provider: Lisa Tobias Consulting Providers: Jose A Lemon Instructions Print Language: Japanese Discharge Orders/Prescriptions Prescriptions: New oxycodone 5 mg tablet 5 mg PO Q6H PRN (Reason: pain) 3 Days Qty: 10 0RF Continued omega 9-jil-zqa-fish oil [Fish Oil] 300-1,000 mg capsule,delayed release(DR/EC) 1 cap PO DAILY Patient Comments: HOLD 7 DAYS PRE-OP ascorbic acid (vitamin C) 500 mg capsule, extended release 500 mg PO DAILY calcium carbonate [Calcium 600] 600 mg calcium (1,500 mg) tablet 600 mg PO BID multivitamin Tablet 1 tab PO DAILY zinc acetate 50 mg (zinc) capsule 50 mg PO DAILY cholecalciferol (vitamin D3) 50 mcg (2,000 unit) capsule 50 mcg PO DAILY Probiotic 3 billion cell capsule 3,000 mmu cells PO .3x/wk Rx Instructions: administer with a meal Collagen 1500 Plus C 500 mg-800 mcg- 50 mg capsule 1 cap PO DAILY aspirin 81 mg tablet,delayed release (DR/EC) 81 mg PO DAILY Patient Comments: HOLD 7 DAYS PRE-OP Tart Puentes Extract 1,000 mg capsule 3,000 mg PO DAILY gabapentin 100 mg capsule 200 mg PO BID atorvastatin 40 mg tablet 40 mg PO QHS citalopram 20 mg tablet 20 mg PO DAILY famotidine 20 mg tablet 20 mg PO BID timolol maleate 0.5 % drops 1 drp ophthalmic (eye) BID amoxicillin 500 mg capsule 2,000 mg PO ONCE PRN (Reason: dental procedures) losartan 50 mg tablet 25 mg PO DAILY cyanocobalamin (vitamin B-12) [Vitamin B-12] 1,000 mcg tablet 1,000 mcg PO DAILY Referrals / Follow Up: Lisa Tobias DIRECTOR [employer] [Primary Care Provider] - Disposition Disposition (needs filled in before D/C Order can be placed): Home, Self Care
--- NOTE | 2025-02-03 11:01 | PCM.POSTANE2 ---
Anesthesia Postop Eval I Sum Postop Eval Completion status Anesthesia document: Postop Eval 1 completed: Yes Anesthesia Postop Eval I Summary Anesthesia Postop Eval I Summary: Anesthesia Postop Eval I: Assessment Summary Airway patent yes Spontaneous unlabored yes respirations Mental status a&o nausea no Vomiting no Anesthesia Postop Eval I: Fluid Summary Crystalloid volume administer (ml) 500 Colloids volume administered ( ml) Blood Product volume administered (ml) Total IV fluid infused 500 Anesthesia Postop Eval I: Summary Notes Anesthesia Complication no Anesthesia Complication no Comment: Post-operative progress note Anesthesia: Postop Eval II Evaluation Mental status: Awake Pain Level: 0 nausea: No Vomiting: No
--- NOTE | 2025-02-03 11:03 | PCM.POST.ANE ---
Anesthesia: Postop Eval I Current Vital Signs Temperature: 97.5 F Pulse Rate: 75 Blood Pressure: 152/83 Respiratory Rate: 14 Pulse Ox: 100 Oxygen Delivery Method: Simple Mask Assessment Airway patent: Yes Spontaneous unlabored respirations: Yes Mental status: Awake nausea: No Vomiting: No Anesthesia Complication: No Fluid Hydration Crystalloid volume administer (ml): 1,100 Total IV fluid infused: 1,100 Progress Note Anesthesia document: Postop Eval 1 completed: Yes
--- NOTE | 2025-02-03 12:51 | POSTOPAN2_ITS ---
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.HBARR Spontaneous unlabored Yes 02/03/25 11:04 NUISANCE ANIMAL DAMAGE CONTROL AGENT.HBARR respirations Mental status Awake 02/03/25 11:04 NUISANCE ANIMAL DAMAGE CONTROL AGENT.HBARR nausea No 02/03/25 11:04 NUISANCE ANIMAL DAMAGE CONTROL AGENT.HBARR Vomiting No 02/03/25 11:04 NUISANCE ANIMAL DAMAGE CONTROL AGENT.HBARR Anesthesia Postop Eval I: Fluid Summary Crystalloid volume administer 1,100 02/03/25 11:04 NUISANCE ANIMAL DAMAGE CONTROL AGENT.HBARR (ml) Colloids volume administered ( ml) Blood Product volume administered (ml) Total IV fluid infused 1,100 02/03/25 11:04 NUISANCE ANIMAL DAMAGE CONTROL AGENT.HBARR Anesthesia Postop Eval I: Summary Notes Anesthesia Complication No 02/03/25 11:04 NUISANCE ANIMAL DAMAGE CONTROL AGENT.HBARR Anesthesia Complication Comment: Post-operative progress note Anesthesia: Postop Eval II Evaluation Mental status: Awake and Calm Pain Level: 1 nausea: No Vomiting: No Complications Anesthesia Complication: No
--- NOTE | 2025-02-03 12:51 | PCM.POSTANE2 ---
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 OBSERVER.HBARR Spontaneous unlabored Yes 02/03/25 11:04 ELECTRICAL PROSPECTING OBSERVER.HBARR respirations Mental status Awake 02/03/25 11:04 ELECTRICAL PROSPECTING OBSERVER.HBARR nausea No 02/03/25 11:04 ELECTRICAL PROSPECTING OBSERVER.HBARR Vomiting No 02/03/25 11:04 ELECTRICAL PROSPECTING OBSERVER.HBARR Anesthesia Postop Eval I: Fluid Summary Crystalloid volume administer 1,100 02/03/25 11:04 ELECTRICAL PROSPECTING OBSERVER.HBARR (ml) Colloids volume administered ( ml) Blood Product volume administered (ml) Total IV fluid infused 1,100 02/03/25 11:04 ELECTRICAL PROSPECTING OBSERVER.HBARR Anesthesia Postop Eval I: Summary Notes Anesthesia Complication No 02/03/25 11:04 ELECTRICAL PROSPECTING OBSERVER.HBARR Anesthesia Complication Comment: Post-operative progress note Anesthesia: Postop Eval II Evaluation Mental status: Awake and Calm Pain Level: 1 nausea: No Vomiting: No Complications Anesthesia Complication: No
== END 2025-02-03 16:10 | disposition home or self-care (01) ==
LOC: SDC 06:11 → AC 06:11
PROVIDERS: Anesthesiology; PCP Nurse Practitioner Family; Referring Provider Surgery; Visit Provider Surgery
PROC: (CPT 49593; principal; 2025-02-03 07:10)
DX: K43.9 Ventral hernia without obstruction or gangrene (principal); K21.9 Gastro-esophageal reflux disease without esophagitis; Z87.891 Personal history of nicotine dependence; I25.10 Atherosclerotic heart disease of native coronary artery without angina pectoris; I10 Essential (primary) hypertension; E78.00 Pure hypercholesterolemia, unspecified; Z79.899 Other long term (current) drug therapy
CPT/HCPCS: 49593; S2900; 00832; 36415; 80048; 85027; C1781; J0666; J2405